=== PATIENT | male | born 2000 | race Caucasian/White ===

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

== ENCOUNTER 2021-10-30 02:56 | Emergency (ER) | payer SELFPAY ==
[2021-10-30 03:18] VITALS: BP 128/68; PULSE 81; RESP 20; TEMP 36.5; O2SAT 99; BMI 18.8
--- NOTE | 2021-10-30 03:28 | CTR_ITS ---
PROCEDURE INFORMATION: Exam: CT Abdomen And Pelvis Without Contrast Exam date and time: 10/30/2021 3:46 AM Age: 21 years old Clinical indication: Abdominal pain; Patient HX: Pain for six or seven weeks per PT; Additional info: Lower abdominal pain, vomiting. TECHNIQUE: Imaging protocol: Computed tomography of the abdomen and pelvis without contrast. Radiation optimization: All CT scans at this facility use at least one of these dose optimization techniques: automated exposure control; mA and/or kV adjustment per patient size (includes targeted exams where dose is matched to clinical indication); or iterative reconstruction. COMPARISON: CT abdomen pelvis con [id number] 09/11/2018 12:37 AM RADIATION DOSE METRICS: Total DLP (mGy-cm): 839.53 FINDINGS: Lungs: The lung bases are clear. Liver: Unremarkable. Gallbladder and bile ducts: No definite gallbladder abnormality by CT. Ultrasound would be more sensitive for detecting gallstones, if clinically needed. No biliary tree dilation. Pancreas: Unremarkable. Spleen: Unremarkable. Adrenal glands: Unremarkable. Kidneys and ureters: No hydronephrosis of either kidney. No visible renal or ureteral calculus. No perinephric fluid. Stomach and bowel: No significant bowel distention. There are no CT findings to strongly suggest diverticulitis or colitis. Appendix: The appendix is visualized and appears normal. Intraperitoneal space: No free intraperitoneal air, or ascites. Vasculature: No evidence for abdominal aortic aneurysm. Lymph nodes: No retroperitoneal adenopathy. Urinary bladder: Unremarkable as visualized. Reproductive: Essentially unremarkable for age. Bones/joints: No significant acute finding. Soft tissues: No significant acute finding. CT/CT abdomen pelvis [facility] [id number] IMPRESSION: 1. Normal appendix. 2. No free air or bowel distention. No evidence for bowel obstruction. 3. No hydronephrosis of either kidney. No visible renal or ureteral calculus. 4. Other details/findings discussed above.
[2021-10-30 03:49] LABS: Basophils # 0.1 10^3/uL (0.0-0.1); Basophils % 0.4 %; Eosinophils # 0.2 10^3/uL (0.0-0.8); Eosinophils % 1.5 %; Hematocrit 51.4 % (42.0-52.0); Hemoglobin 17.3 g/dL (11.7-16.6); Lymphocytes # 1.4 10^3/uL (0.8-4.8); Lymphocytes % 11.6 %; Mean Corpuscular HGB Conc 33.7 g/dL (30.0-36.0); Mean Corpuscular Volume 92.1 fl (80-94); Mean Platelet Volume 12.1 fL (7.4-10.4); Monocytes # 0.4 10^3/uL (0.2-0.9); Monocytes % 3.2 %; Neutrophils # 10.22 10^3/uL (1.8-7.7); Nucleated Red Blood Cells % 0 %; Platelet Count 195 10^3/cmm (130-400); Red Blood Count 5.58 10^6/uL (4.1-5.3); Red Cell Distribution Width 11.8 % (12.1-15.1); White Blood Count 12.3 10^3/uL (4.0-10.0)
[2021-10-30 04:00] VITALS: PULSE 73; RESP 16; O2SAT 99
[2021-10-30 04:05] LABS: Alanine Aminotransferase 19 U/L (0-41); Albumin Level 5.7 g/dL (3.5-5.2); Alkaline Phosphatase 90 IU/L (40-130); Aspartate Amino Transferase 25 U/L (0-40); Blood Urea Nitrogen 7 mg/dL (6-20); Calcium 10.1 mg/dL (8.5-10.5); Carbon Dioxide 26 mmol/L (22-29); Chloride 101 mmol/L (98-107); Globulin 2.5 g/dL (1.3-4.6); Glucose 106 mg/dL (65-115); Lipase 20 U/L (13-60); Osmolality Calculated 292 mOsm/kg (285-295); Sodium 142 mmol/L (136-145); Total Bilirubin 0.6 mg/dL (0.15-1.2); Total Protein 8.2 g/dL (6.6-8.7)
[2021-10-30 04:06] LABS: Anion Gap 19.1 (5-19); Potassium 4.1 mmol/L (3.5-5.1)
[2021-10-30 05:00] VITALS: BP 121/77; PULSE 84; RESP 16; O2SAT 99
--- NOTE | 2021-10-30 05:22 | ED_ITS ---
HPI - Nausea/Vomiting/Diarrhea General: Chief complaint: Nausea/Vomiting/Diarrhea Stated complaint: abd pain Time Seen by Provider: 10/30/21 03:20 Source: patient and family History of Present Illness: 21-year-old male who complains of vomiting on and off for several weeks. He became acutely worse this morning, developing significant belly pain. His dad brought him to the ER because he was worried about the belly pain. He complains also of intermittent diarrhea. No blood in the stool. No fever. No change in urination. No history of belly surgery. MD elicited complaint: nausea, vomiting, diarrhea and abdominal pain Pertinent past history: other Onset (ago): week(s) Description of vomiting: watery Description of diarrhea: watery Associated nausea: Yes Associated abdominal pain: Yes Location of pain: Diffuse Radiation: periumbilical Associated symtoms: Reports nausea; Denies chest pain Review of Systems Const: Denies: fever(s) ENMT: Denies: throat pain Card: Denies: chest pain or irregular heart rhythm Resp: Denies: dyspnea, productive cough or non-productive cough GI: Reports: abdominal pain, nausea, vomiting and diarrhea; Denies: hematemesis or hematochezia Musc: Denies: back pain Skin/Breast: Denies: rash PFSH ED PFSH: Medical History Abdominal pain Nausea and vomiting in adult Family History Other Hypertension Nausea and vomiting in adult Denies family history of Anesthesia complication Bleeding disorder Social History Smoking and tobacco status: former smoker Quit status (tobacco): has quit using tobacco Year quit tobacco: 2 or 3 months ago Second hand smoke exposure: No Alcohol intake: current Alcohol intake frequency: holidays/special occasions only Desire information about alcohol rehabilitation?: No Adopted: No Caregiver/support person: Yes Lives independently: Yes Household members: family Housing: House Marital status: Single Highest education level completed: High School Graduate service: No Current occupational status: employed Current occupational exposures/hazards: No Pets and animals: No History of recent travel: No Leisure activites: games, hunting and fishing Sexually active: Yes Current gender identity: Male Meg/Druze: Orthodoxy Special meg needs: No Agree to transfusion: No Financial difficulty paying for basics: Decline to Answer Physical Exam Const: GENERAL APPEARANCE: cooperative; not frail appearing NUTRITIONAL APPEARANCE: thin HENMT: COMMON NORMALS: normocephalic and atraumatic HEAD & SCALP: normocephalic and atraumatic FACE & SINUS: normal facial exam and face symmetric Eye: COMMON NORMALS: Equal, round and reactive pupils present and EOMs intact bilaterally PUPIL: Yes Equal, round and reactive pupils present Neck/C-Spine: GENERAL: Yes trachea midline Chest: CHEST: Yes Symmetrical chest wall rise Resp: COMMON NORMALS: normal respiratory effort, No use of accessory muscles and clear to auscultation bilaterally AUSCULTATION: clear to auscultation bilaterally Cardio: COMMON NORMALS: regular rate and regular rhythm RATE: regular rate RHYTHM: regular rhythm GI: COMMON NORMALS: Normal to inspection, nondistended, normoactive bowel sounds present PALPATION: Yes Tenderness to palpation present (GI) (Lower abdomen) Extremity: COMMON NORMALS: capillary refill normal Neuro: SKINNY COMA SCALE: document GCS findings [place] coma scale eye opening: Spontaneous Skinny coma scale verbal response: Orientated [place] coma scale motor response: Obey commands Skinny coma scale total score: 15 Course Vital Signs: Vital signs: Vital Signs Temperature 97.7 F 10/30/21 03:18 Pulse Rate 107 H 10/30/21 05:30 Respiratory Rate 18 10/30/21 05:30 Blood Pressure 121/77 10/30/21 05:00 Pulse Oximetry 99 10/30/21 05:30 MDM - Nausea/Vomiting/Diarrhea Medical Decision Making Vital signs are stable. The patient is afebrile. Blood work shows a leukocytos is of 12.3, and hemoconcentration. BMP is normal. Liver enzymes are normal. CT is pending. CT shows a normal appendix. No evidence of acute findings as a cause for her belly pain, vomiting, and diarrhea. The patient admits to marijuana use, and smells strongly of marijuana. Could be considered that cyclic vomiting syndrome related to cannabis could be a potential cause of recurrent vomiting in this patient. Lab Data : 10/30/21 03:45 10/30/21 03:45 Radiology Impressions Abdomen/Pelvis CT 10/30/21 03:28 IMPRESSION: 1. Normal appendix. 2. No free air or bowel distention. No evidence for bowel obstruction. 3. No hydronephrosis of either kidney. No visible renal or ureteral calculus. 4. Other details/findings discussed above. Laboratory Results WBC 12.3 10^3/uL (4.0-10.0) H 10/30/21 03:45 RBC 5.58 10^6/uL (4.1-5.3) H 10/30/21 03:45 Hgb 17.3 g/dL (11.7-16.6) H 10/30/21 03:45 Hct 51.4 % (42.0-52.0) 10/30/21 03:45 MCV 92.1 fl (80-94) 10/30/21 03:45 MCH 31.0 pg (28.0-34.0) 10/30/21 03:45 MCHC 33.7 g/dL (30.0-36.0) 10/30/21 03:45 RDW 11.8 % (12.1-15.1) L 10/30/21 03:45 Plt Count 195 10^3/cmm (130-400) 10/30/21 03:45 MPV 12.1 fL (7.4-10.4) H 10/30/21 03:45 Neut % (Auto) 83.0 % 10/30/21 03:45 Lymph % (Auto) 11.6 % 10/30/21 03:45 Nicholas % (Auto) 3.2 % 10/30/21 03:45 Eos % (Auto) 1.5 % 10/30/21 03:45 Baso % (Auto) 0.4 % 10/30/21 03:45 Neut # (Auto) 10.22 10^3/uL (1.8-7.7) H 10/30/21 03:45 Lymph # (Auto) 1.4 10^3/uL (0.8-4.8) 10/30/21 03:45 Nicholas # (Auto) 0.4 10^3/uL (0.2-0.9) 10/30/21 03:45 Eos # (Auto) 0.2 10^3/uL (0.0-0.8) 10/30/21 03:45 Baso # (Auto) 0.1 10^3/uL (0.0-0.1) 10/30/21 03:45 Nucleated RBC % (auto) 0 % 10/30/21 03:45 Nucleated RBCs # 0.0 /100WBC 10/30/21 03:45 Sodium 142 mmol/L (136-145) 10/30/21 03:45 Potassium 4.1 mmol/L (3.5-5.1) 10/30/21 03:45 Chloride 101 mmol/L (98-107) 10/30/21 03:45 Carbon Dioxide 26 mmol/L (22-29) 10/30/21 03:45 Anion Gap 19.1 (5-19) H 10/30/21 03:45 BUN 7 mg/dL (6-20) 10/30/21 03:45 Creatinine 0.8 mg/dL (0.7-1.2) 10/30/21 03:45 GFR Calculation 122.0 mL/min (90-130) 10/30/21 03:45 Glucose 106 mg/dL (65-115) 10/30/21 03:45 Calculated Osmolality 292 mOsm/kg (285-295) 10/30/21 03:45 Calcium 10.1 mg/dL (8.5-10.5) 10/30/21 03:45 Total Bilirubin 0.6 mg/dL (0.15-1.2) 10/30/21 03:45 AST 25 U/L (0-40) 10/30/21 03:45 ALT 19 U/L (0-41) 10/30/21 03:45 Alkaline Phosphatase 90 IU/L (40-130) 10/30/21 03:45 C-Reactive Protein 3.0 mg/L (0.0-4.9) 10/30/21 03:45 Total Protein 8.2 g/dL (6.6-8.7) 10/30/21 03:45 Albumin 5.7 g/dL (3.5-5.2) H 10/30/21 03:45 Globulin 2.5 g/dL (1.3-4.6) 10/30/21 03:45 Lipase 20 U/L (13-60) 10/30/21 03:45 Discharge Plan Discharge Patient Disposition: Home Clinical Impression: Abdominal pain, Cyclical vomiting syndrome Condition: Stable Prescriptions: New ondansetron 4 mg film 4 mg PO DAILY PRN (Reason: nausea and vomiting) Qty: 10 0RF No Action pantoprazole [Protonix] 40 mg tablet,delayed release (DR/EC) 40 mg PO ONCE Qty: 30 0RF diphenhydramine HCl [Benadryl] 25 mg Capsule 25 mg PO TID PRN (Reason: allergies) 0RF lisinopril 10 mg tablet 10 mg PO DAILY 0RF montelukast 10 mg tablet 10 mg PO DAILY 0RF sildenafil (pulm.hypertension) 20 mg tablet 20 mg PO DAILY 0RF Discharge Orders: Discharge ED (Routine); Ordered 10/30/21 Ordered By: Abdirizak Young Patient Instructions: Abdominal Pain (ED), Cyclic Vomiting Syndrome (ED) Activity Restrictions/Additional Instructions: Return for fever greater than 100, worsening vomiting despite treatment, blood in the stool or vomitus, any other concerning symptoms. As the use of cannabis can worsen vomiting acutely, it is suggested that you do not use marijuana for the time being. 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
[2021-10-30 05:30] VITALS: PULSE 107; RESP 18; O2SAT 99
[2021-10-30] MEDS: ketorolac 30 mg/mL INJ 15 MG IVP (05:35)
[2021-10-30] MEDS: sodium chloride 0.9% 1,000 ML 999 ML IV (05:35)
[2021-10-30] MEDS: ondansetron 2 mg/ML SDV 2 mL 4 MG IVP (05:35)
[2021-10-30 06:04] LABS: Add Urine Microscopic? NO; Charge for UA Resulting for Rev
[2021-10-30 06:11] LABS: Urine Appearance Clear (CLEAR); Urine Color Yellow (Yellow); pH Urine 9 (5-7)
[2021-10-30 06:12] LABS: Bilirubin Urine Neg (Negative); Blood Urine Neg (Negative); Glucose Urine UA Norm (Normal); Ketones Urine 1+ (Negative); Leukocyte Esterase Urine Negative (Negative); Nitrate Urine Negative (Negative); Protein Urine Neg (Negative); Specific Gravity, Urine 1.015 (1.005-1.030); Sulfosalicylic Acid Urine Negative (Negative); Urobilinogen Urine Norm (Negative)
[2021-10-30 06:16] VITALS: BP 114/95; PULSE 107; RESP 18; O2SAT 99
== END 2021-10-30 06:20 | disposition home or self-care (01) ==
PROVIDERS: Emergency Provider Emergency Medicine
DX: R10.9 Unspecified abdominal pain (principal); R11.15 Cyclical vomiting syndrome unrelated to migraine
CPT/HCPCS: 74176; 80053; 81003; 83690; 85025; 86140; 96361; 96374; 96375; 99285; J1885; J2405; J7030

== ENCOUNTER 2022-01-12 11:33 | Emergency (ER) | payer SELFPAY ==
[2022-01-12 11:59] VITALS: BMI 20.3
[2022-01-12 13:41] LABS: Basophils # 0.1 10^3/uL (0.0-0.1); Basophils % 0.5 %; Eosinophils # 0.1 10^3/uL (0.0-0.8); Eosinophils % 0.8 %; Hematocrit 49.9 % (42.0-52.0); Hemoglobin 16.1 g/dL (11.7-16.6); Lymphocytes # 0.8 10^3/uL (0.8-4.8); Lymphocytes % 7.8 %; Mean Corpuscular HGB Conc 32.3 g/dL (30.0-36.0); Mean Corpuscular Hemoglobin 31.3 pg (28.0-34.0); Mean Corpuscular Volume 97.1 fl (80-94); Mean Platelet Volume 11.9 fL (7.4-10.4); Monocytes # 0.3 10^3/uL (0.2-0.9); Monocytes % 3.3 %; Neutrophils # 8.72 10^3/uL (1.8-7.7); Neutrophils % 87.2 %; Nucleated Red Blood Cells % 0 %; Platelet Count 155 10^3/cmm (130-400); Red Blood Count 5.14 10^6/uL (4.1-5.3); Red Cell Distribution Width 11.9 % (12.1-15.1)
[2022-01-12 14:00] LABS: Alanine Aminotransferase 18 U/L (0-41); Albumin Level 5.3 g/dL (3.5-5.2); Alkaline Phosphatase 82 U/L (40-130); Anion Gap 19.7 (5-19); Aspartate Amino Transferase 20 U/L (0-40); Blood Urea Nitrogen 9 mg/dL (6-20); Calcium 10.7 mg/dL (8.5-10.5); Carbon Dioxide 22 mmol/L (22-29); Chloride 101 mmol/L (98-107); Globulin 2.7 g/dL (1.3-4.6); Glomerular Filtration Rate 106.5 mL/min (90-130); Glucose 150 mg/dL (65-115); Osmolality Calculated 288 mOsm/kg (285-295); Potassium 4.7 mmol/L (3.5-5.1); Sodium 138 mmol/L (136-145)
[2022-01-12] MEDS: ondansetron 2 mg/ML SDV 2 mL 4 MG IVP (14:23)
[2022-01-12] MEDS: lactated ringers 1,000 ML 999 ML IV ×2 (14:24→15:13)
[2022-01-12 14:25] VITALS: BP 122/81; PULSE 58; RESP 16; O2SAT 98
[2022-01-12 14:59] VITALS: BP 122/63; PULSE 56; RESP 15; O2SAT 100
--- NOTE | 2022-01-12 15:10 | ED_ITS ---
HPI - Abdominal Pain General: Chief Complaint: Abdominal Pain Stated Complaint: N/V Time Seen by Provider: 01/12/22 14:08 Source: patient and family Mode of arrival: ambulatory History of Present Illness: This patient was brought to the emergency department by his family today because he had repetitive vomiting today. He is also has some associated complaint of abdominal pain. He denies any fevers or chills or known exposure to anyone who is ill. He apparently had a prior episode that was related to marijuana use and thought to be hyperemesis. He adamantly denies at this time he smoking marijuana but does admit to vaping. He denies any known exposure to infectious disease outside the home. Never had any abdominal surgeries. No blood in his stools or no bloody emesis. He does not drink alcohol. He does have seasonal allergies and also gets a lot of congestion and coughs in the morning and sometimes he has emesis with those coughing spells but usually that is only isolated emesis. MD elicited complaint: abdominal pain Pain Consistency: intermittent Quality: cramping Associated Symptoms: Reports vomiting; Denies chills, diarrhea, dysuria, fever(s), hematemesis, loose stools and melena Review of Systems Const: Denies: fever(s), chills or body aches Eyes: Denies: change in vision ENMT: Reports: nasal discharge and nasal congestion; Denies: throat pain, odynophagia or hoarseness Card: Denies: chest pain, palpitations or irregular heart rhythm Resp: Reports: non-productive cough; Denies: dyspnea, wheezing or stridor GI: Reports: abdominal pain and vomiting; Denies: hematemesis, diarrhea or melena : Denies: flank pain, difficulty urinating or dysuria Musc: Denies: neck pain, back pain, extremity pain or extremity swelling Skin/Breast: Denies: rash Neuro: Denies: headache(s) or numbness in extremities PFSH ED PFSH: Medical History Abdominal pain Nausea and vomiting in adult Family History Other Hypertension Nausea and vomiting in adult Denies family history of Anesthesia complication Bleeding disorder Social History Smoking and tobacco status: former smoker Quit status (tobacco): has quit using tobacco Year quit tobacco: 2 or 3 months ago Second hand smoke exposure: No Alcohol intake: current Alcohol intake frequency: holidays/special occasions only Desire information about alcohol rehabilitation?: No Adopted: No Caregiver/support person: Yes Lives independently: Yes Household members: family Housing: House Marital status: Single Highest education level completed: High School Graduate service: No Current occupational status: employed Current occupational exposures/hazards: No Pets and animals: No History of recent travel: No Leisure activites: games, hunting and fishing Sexually active: Yes Current gender identity: Male Meg/Nondenominational: Mandaen Special meg needs: No Agree to transfusion: No Financial difficulty paying for basics: Decline to Answer Physical Exam Narrative: EXAM NARRATIVE: Patient is generally cooperative during the evaluation. He does ask for pain medicine and a drink while I am examining him. Const: COMMON NORMALS: average body habitus, patient oriented x3 and alert HENMT: COMMON NORMALS: normocephalic, Normal nasal mucous membranes and turbinates present, moist oral mucous membranes and oropharynx normal HEAD & SCALP: normocephalic NOSE: Normal nasal mucous membranes and turbinates present Eye: COMMON NORMALS: Equal, round and reactive pupils present, EOMs intact bilaterally, conjunctivae normal and no scleral icterus CONJUNCTIVA: Yes conjunctivae normal PUPIL: Yes Equal, round and reactive pupils present Neck/C-Spine: COMMON NORMALS: full ROM, no lymphadenopathy and supple Chest: COMMONS NORMALS: normal inspection of the chest and normal palpation of entire chest wall Resp: COMMON NORMALS: normal respiratory effort, No use of accessory muscles and clear to auscultation bilaterally AUSCULTATION: clear to auscultation bilaterally Cardio: COMMON NORMALS: regular rate, regular rhythm, No murmurs present (Cardio) and Peripheral pulses 2+ throughout RATE: regular rate RHYTHM: regular rhythm PERIPHERAL PULSES: Peripheral pulses 2+ throughout GI: COMMON NORMALS: Normal to inspection, nondistended, normoactive bowel sounds present OTHER: His abdominal examination is generally soft however he has voluntary guarding throughout which is diffuse. No peritoneal signs or rebound. No masses. No skin rashes. No ecchymosis. : COMMON NORMALS: Yes no CVA tenderness BLADDER/KIDNEY EXAM: Yes no CVA tenderness Back/Pelvis: COMMON NORMALS: no CVA tenderness, thoracic and lumbar spine normal to inspection, no thoracic nor lumbar tenderness and thoraco-lumbar ROM normal Extremity: COMMON NORMALS: normal to inspection, capillary refill normal, no calf tenderness and no pedal edema Neuro: COMMON NORMALS: patient oriented x3, moves all extremities, no focal motor deficits and no sensory deficits noted SENSORIUM/ORIENTATION: Yes alert SPEECH: speech normal Psych: COMMON NORMALS: mental status grossly normal Skin: COMMON NORMALS: no rashes or lesions noted, no wounds, turgor normal and no jaundice GENERAL SKIN EXAM: no rashes or lesions noted and turgor normal Course Reevaluation(s): Reevaluation #1: Patient has been well controlled without any emesis since arrival to the emergency department and after initiation of treatment. His urine drug screen is revealing in that it is in direct distinction to his denial of any marijuana use for several weeks. His clinical examination his laboratories do not support any surgical or other worrisome condition at this time. I strongly encouraged him to avoid his marijuana use or least markedly to decrease use as he is clearly suffering based upon our current evaluation from hyperemesis syndrome. Time: 17:42 Vital Signs: Vital signs: Vital Signs Pulse Rate 66 01/12/22 15:19 Respiratory Rate 17 01/12/22 15:19 Blood Pressure 130/85 01/12/22 15:19 Pulse Oximetry 99 01/12/22 15:19 Oxygen Delivery Me thod 01/12/22 15:19 MDM - Abdominal Pain Medical Decision Making Healthy 21-year-old with a history of high level of marijuana use returns to the emergency department again with episode of repetitive retching and emesis. Clinical examination does not suggest surgical abdomen and ancillary studies do not reveal anything that would suggest a worrisome condition at this time. However urine drug screen does reveal that he has continued to use marijuana certainly within the last number of weeks. He is currently clinically stable to be discharged home and that is in consort with his current wishes. Medical Records I reviewed the patient's medical records. Lab Data I reviewed the patient's lab results. : 01/12/22 13:32 01/12/22 13:32 Labs/Radiology: Laboratory Results WBC 10.0 10^3/uL (4.0-10.0) 01/12/22 13:32 RBC 5.14 10^6/uL (4.1-5.3) 01/12/22 13:32 Hgb 16.1 g/dL (11.7-16.6) 01/12/22 13:32 Hct 49.9 % (42.0-52.0) 01/12/22 13:32 MCV 97.1 fl (80-94) H 01/12/22 13:32 MCH 31.3 pg (28.0-34.0) 01/12/22 13:32 MCHC 32.3 g/dL (30.0-36.0) 01/12/22 13:32 RDW 11.9 % (12.1-15.1) L 01/12/22 13:32 Plt Count 155 10^3/cmm (130-400) 01/12/22 13:32 MPV 11.9 fL (7.4-10.4) H 01/12/22 13:32 Neut % (Auto) 87.2 % 01/12/22 13:32 Lymph % (Auto) 7.8 % 01/12/22 13:32 Bertie % (Auto) 3.3 % 01/12/22 13:32 Eos % (Auto) 0.8 % 01/12/22 13:32 Baso % (Auto) 0.5 % 01/12/22 13:32 Neut # (Auto) 8.72 10^3/uL (1.8-7.7) H 01/12/22 13:32 Lymph # (Auto) 0.8 10^3/uL (0.8-4.8) 01/12/22 13:32 Bertie # (Auto) 0.3 10^3/uL (0.2-0.9) 01/12/22 13:32 Eos # (Auto) 0.1 10^3/uL (0.0-0.8) 01/12/22 13:32 Baso # (Auto) 0.1 10^3/uL (0.0-0.1) 01/12/22 13:32 Nucleated RBC % (auto) 0 % 01/12/22 13:32 Nucleated RBCs # 0.0 /100WBC 01/12/22 13:32 Sodium 138 mmol/L (136-145) 01/12/22 13:32 Potassium 4.7 mmol/L (3.5-5.1) 01/12/22 13:32 Chloride 101 mmol/L (98-107) 01/12/22 13:32 Carbon Dioxide 22 mmol/L (22-29) 01/12/22 13:32 Anion Gap 19.7 (5-19) H 01/12/22 13:32 BUN 9 mg/dL (6-20) 01/12/22 13:32 Creatinine 0.9 mg/dL (0.7-1.2) 01/12/22 13:32 GFR Calculation 106.5 mL/min (90-130) 01/12/22 13:32 Glucose 150 mg/dL (65-115) H 01/12/22 13:32 Calculated Osmolality 288 mOsm/kg (285-295) 01/12/22 13:32 Calcium 10.7 mg/dL (8.5-10.5) H 01/12/22 13:32 Total Bilirubin 1.0 mg/dL (0.15-1.2) 01/12/22 13:32 AST 20 U/L (0-40) 01/12/22 13:32 ALT 18 U/L (0-41) 01/12/22 13:32 Alkaline Phosphatase 82 U/L (40-130) 01/12/22 13:32 Total Protein 8.0 g/dL (6.6-8.7) 01/12/22 13:32 Albumin 5.3 g/dL (3.5-5.2) H 01/12/22 13:32 Globulin 2.7 g/dL (1.3-4.6) 01/12/22 13:32 Urine Color Straw (Yellow) 01/12/22 16:45 Urine Appearance Clear (CLEAR) 01/12/22 16:45 Urine pH 8 (5-7) H 01/12/22 16:45 Ur Specific [place] 1.010 (1.005-1.030) 01/12/22 16:45 Urine Protein Neg (Negative) 01/12/22 16:45 Urine Glucose (UA) Norm (Normal) 01/12/22 16:45 Urine Ketones 1+ (Negative) H 01/12/22 16:45 Urine Blood Neg (Negative) 01/12/22 16:45 Urine Nitrate Negative (Negative) 01/12/22 16:45 Urine Bilirubin Neg (Negative) 01/12/22 16:45 Prot Sulfosalicylic Acd Negative (Negative) 01/12/22 16:45 Urine Urobilinogen Norm mg/dL (Negative) 01/12/22 16:45 Ur Leukocyte Esterase Negative (Negative) 01/12/22 16:45 Urine Opiates Screen Negative ng/mL (Negative) 01/12/22 16:45 Ur Barbiturates Screen Negative ng/mL (Negative) 01/12/22 16:45 Ur Phencyclidine Scrn Negative ng/mL (Negative) 01/12/22 16:45 Ur Amphetamines Screen Negative ng/mL (Negative) 01/12/22 16:45 U Benzodiazepines Scrn Negative ng/mL (Negative) 01/12/22 16:45 Urine Cocaine Screen Negative ng/mL (Negative) 01/12/22 16:45 U Marijuana (THC) Screen Positive ng/mL (Negative) H 01/12/22 16:45 Discharge Plan Discharge Patient Disposition: Home Clinical Impression: Cannabinoid hyperemesis syndrome Condition: Stable Prescriptions: No Action diphenhydramine HCl [Benadryl] 25 mg Capsule 25 mg PO BEDTIME PRN (Reason: allergies) montelukast 10 mg tablet 10 mg PO QAM ondansetron 4 mg tablet,disintegrating 4 mg PO DAILY PRN (Reason: Nausea And Vomiting) Discharge Orders: Discharge ED (Routine); Ordered 01/12/22 Ordered By: Wei Curtis Discharge Diet: Usual diet Discharge Activity: Resume usual activity Patient Instructions: Opioid Safety, Pain Management Activity Restrictions/Additional Instructions: Do not use or smoke marijuana. This will cause recurrent symptoms of vomiting in your case. If you develop any new persistent or worsening symptoms you are welcome to return to this emergency department at any time. Coding Level of Care Code ED Biomedical Engineering Professor for Casey Fweric Exam Comprehensive
[2022-01-12] MEDS: haloperidol inj 5 mg/mL INJ 1 mL IVP (15:14)
[2022-01-12 15:19] VITALS: BP 130/85; PULSE 66; RESP 17; O2SAT 99
--- NOTE | 2022-01-12 15:30 | PC.PHAR ---
pt and pts family verified pts medications-pt states he takes montelukast 10mg q[facility] and this medication hasnt been filled [facility] states they havent filled medication for the pt-pt states he is no longer taking lisinopril 10mg daily sildenafil 20mg daily and protonix 40mg those medications were on previous entered med list ext med history doesnt show when last filled pt states no taken for years
--- NOTE | 2022-01-12 15:38 | PC.NURSE ---
Patient continues to c/o abdominal pain, was rocking on the bed and yelling it hurts, patient given zofran and haldol per orders. At this time patient is seen resting with eyes closed, no distress noted.
--- NOTE | 2022-01-12 16:29 | PC.NURSE ---
Patient appears to be sleeping at this time, no distress noted
[2022-01-12 16:59] LABS: Add Urine Microscopic? NO; Charge for UA Resulting for Rev
[2022-01-12] MEDS: ketorolac 30 mg/mL INJ 15 MG IVP (17:10)
[2022-01-12 17:11] LABS: Bilirubin Urine Neg (Negative); Blood Urine Neg (Negative); Glucose Urine UA Norm (Normal); Ketones Urine 1+ (Negative); Leukocyte Esterase Urine Negative (Negative); Nitrate Urine Negative (Negative); Protein Urine Neg (Negative); Sulfosalicylic Acid Urine Negative (Negative); Urine Appearance Clear (CLEAR); Urine Color Straw (Yellow); Urobilinogen Urine Norm (Negative); pH Urine 8 (5-7)
[2022-01-12 17:21] LABS: Amphetamines Screen Urine Negative (Negative); Barbiturates Screen Urine Negative (Negative); Benzodiazepines Screen Urine Negative (Negative); Cocaine Screen Urine Negative (Negative); Opiate Screen Urine Negative (Negative); PCP Screen Urine Negative (Negative); THC Screen Urine Positive (Negative)
[2022-01-12 18:17] VITALS: BP 113/63; PULSE 81; RESP 15; TEMP 36.5; O2SAT 97
== END 2022-01-12 18:19 | disposition home or self-care (01) ==
PROVIDERS: Family Medicine; Emergency Provider Emergency Medicine
DX: R11.10 Vomiting, unspecified (principal); F12.920 Cannabis use, unspecified with intoxication, uncomplicated; Z87.891 Personal history of nicotine dependence
CPT/HCPCS: 80053; 80306; 81003; 85025; 96361; 96374; 96375; 99284; J1630; J1885; J2405

== ENCOUNTER 2022-07-05 09:18 | Emergency (ER) | payer MEDICAID, SELFPAY ==
[2022-07-05 09:23] VITALS: BMI 18.4
--- NOTE | 2022-07-05 09:40 | ED_ITS ---
HPI - Abdominal Pain General: Chief Complaint: Nausea/Vomiting/Diarrhea Stated Complaint: n/v Time Seen by Provider: 07/05/22 09:18 History of Present Illness: Patient is a 22-year-old male comes to the ED with abdominal pain. Symptoms started yesterday morning. He reports having ab dominal pain that is located in the periumbilical region of his abdomen. He rates his pain currently a 5 out of 10. Patient also reports nausea and vomiting and has had multiple episodes of emesis since onset of symptoms. He says he has not been able to keep any food or fluids down. Patient reports being a past marijuana user, but states he stopped using marijuana approximately 3 weeks ago. Denies any past abdominal surgical history. He endorses having nausea and vomiting episodes like this before but denies any past abdominal pain episodes like this. Denies any fevers, bladder or bowel symptoms. Associated Symptoms: Reports nausea and vomiting; Denies chills, constipation, diarrhea, dysuria, fever(s), hematochezia and hematuria Review of Systems Const: Denies: fever(s), chills or fatigue Eyes: Denies: change in vision or eye discomfort ENMT: Denies: throat pain, odynophagia, nasal discharge or nasal congestion Card: Denies: chest pain, palpitations, edema, swelling of feet/ankles, dyspnea on exertion or orthopnea Resp: Denies: dyspnea, productive cough or non-productive cough GI: Reports: abdominal pain, nausea and vomiting; Denies: diarrhea, constipation or hematochezia : Denies: flank pain, difficulty urinating, dysuria or hematuria Musc: Denies: neck pain, back pain or extremity swelling Skin/Breast: Denies: rash or new lesions Neuro: Denies: headache(s), numbness in extremities or weakness in extremities PFSH ED PFSH: Medical History (Updated 07/05/22 @ 11:29 by KATERINA Amaya) Abdominal pain Nausea and vomiting in adult Surgical History (Updated 07/05/22 @ 09:45 by KATERINA Amaya) No pertinent past surgical history Family History Other Hypertension Nausea and vomiting in adult Denies family history of Anesthesia complication Bleeding disorder Social History Smoking and tobacco status: former smoker Quit status (tobacco): has quit using tobacco Year quit tobacco: 2 or 3 months ago Second hand smoke exposure: No Alcohol intake: current Alcohol intake frequency: holidays/special occasions only Desire information about alcohol rehabilitation?: No Adopted: No Caregiver/support person: Yes Lives independently: Yes Household members: family Housing: House Marital status: Single Highest education level completed: High School Graduate service: No Current occupational status: employed Current occupational exposures/hazards: No Pets and animals: No Leisure activites: games, hunting and fishing Sexually active: Yes Current gender identity: Male Meg/[employer]: [employer] Special meg needs: No Agree to transfusion: No Financial difficulty paying for basics: Decline to Answer Physical Exam Const: COMMON NORMALS: patient oriented x3 and alert GENERAL APPEARANCE: cooperative HENMT: COMMON NORMALS: normocephalic HEAD & SCALP: normocephalic MOUTH: Normal oral and palatal mucosa present THROAT: posterior oropharynx normal and uvula midline Neck/C-Spine: COMMON NORMALS: supple GENERAL: Yes normal visual inspection Resp: COMMON NORMALS: normal respiratory effort, No retractions, No use of accessory muscles and clear to auscultation bilaterally AUSCULTATION: clear to auscultation bilaterally Cardio: COMMON NORMALS: regular rate, regular rhythm, S1 normal heart sound present, S2 normal heart sound present, No gallops present (Cardio), No clicks present (Cardio), No murmurs present (Cardio) and Peripheral pulses 2+ throughout RATE: regular rate RHYTHM: regular rhythm HEART SOUNDS: S1 normal heart sound present and S2 normal heart sound present PERIPHERAL PULSES: Peripheral pulses 2+ throughout GI: COMMON NORMALS: Normal to inspection, nondistended, normoactive bowel sounds present, Soft to palpation and no masses PALPATION: Yes Soft to palpation and Yes Tenderness to palpation present (GI) (Periumbilical abdominal tenderness.) : COMMON NORMALS: Yes no CVA tenderness BLADDER/KIDNEY EXAM: Yes no CVA tenderness Back/Pelvis: COMMON NORMALS: no CVA tenderness Extremity: COMMON NORMALS: normal to inspection Neuro: COMMON NORMALS: patient oriented x3 SENSORIUM/ORIENTATION: Yes alert GAIT: Yes Normal gait present Skin: GENERAL SKIN EXAM: dry skin Course Vital Signs: Vital signs: Vital Signs Temperature 97.8 F 07/05/22 09:57 Pulse Rate 75 07/05/22 11:38 Respiratory Rate 18 07/05/22 11:38 Blood Pressure 111/76 07/05/22 11:38 Pulse Oximetry 94 07/05/22 11:38 MDM - Abdominal Pain Medical Decision Making Patient is a 22-year-old male comes to the ED with abdominal pain. Symptoms started yesterday morning. He reports having abdominal pain that is located in the periumbilical region of his abdomen. He rates his pain currently a 5 out of 10. Patient also reports nausea and vomiting and has had multiple episodes of emesis since onset of symptoms. He says he has not been able to keep any food or fluids down. Patient reports being a past marijuana user, but states he stopped using marijuana approximately 3 weeks ago. Denies any past abdominal surgical history. He endorses having nausea and vomiting episodes like this before but denies any past abdominal pain episodes like this. Denies any fevers, bladder or bowel symptoms. Vitals are stable. Patient appears nontoxic in no acute distress. Mild periumbilical tenderness. Rest of exam is benign. Labs are unremarkable. CT of abdomen pelvis shows no acute findings but notes some signs of gastroenteritis. Patient was given a liter of IV fluids, morphine, Reglan and his symptoms improved. Patient was diagnosed gastroenterit is and discharged home with a prescription for dicyclomine and Reglan. Return to ED precautions given. Follow-up with PCP in the next week for reevaluation. Patient understood and agreed with plan. Lab Data I reviewed the patient's lab results. 07/05/22 09:50 07/05/22 09:50 Labs/Radiology: Radiology Impressions Abdomen/Pelvis CT 07/05/22 10:09 IMPRESSION: 1. Sensitivity and specificity is limited without IV and oral contrast and due to body habitus. 2. Only a portion of the appendix is visualized but is normal. 3. No renal obstruction. 4. Mild increased gas throughout the colon may represent gastroenteritis. There is no ascites. Laboratory Results WBC 9.4 10^3/uL (4.0-10.0) 07/05/22 09:50 RBC 5.06 10^6/uL (4.1-5.3) 07/05/22 09:50 Hgb 15.4 g/dL (11.7-16.6) 07/05/22 09:50 Hct 45.6 % (42.0-52.0) 07/05/22 09:50 MCV 90.1 fl (80-94) 07/05/22 09:50 MCH 30.4 pg (28.0-34.0) 07/05/22 09:50 MCHC 33.8 g/dL (30.0-36.0) 07/05/22 09:50 RDW 12.1 % (12.1-15.1) 07/05/22 09:50 Plt Count 194 10^3/cmm (130-400) 07/05/22 09:50 MPV 12.1 fL (7.4-10.4) H 07/05/22 09:50 Neut % (Auto) 75.0 % 07/05/22 09:50 Lymph % (Auto) 16.2 % 07/05/22 09:50 [place] % (Auto) 7.5 % 07/05/22 09:50 Eos % (Auto) 0.7 % 07/05/22 09:50 Baso % (Auto) 0.3 % 07/05/22 09:50 Neut # (Auto) 7.02 10^3/uL (1.8-7.7) 07/05/22 09:50 Lymph # (Auto) 1.5 10^3/uL (0.8-4.8) 07/05/22 09:50 [place] # (Auto) 0.7 10^3/uL (0.2-0.9) 07/05/22 09:50 Eos # (Auto) 0.1 10^3/uL (0.0-0.8) 07/05/22 09:50 Baso # (Auto) 0.0 10^3/uL (0.0-0.1) 07/05/22 09:50 Nucleated RBC % (auto) 0 % 07/05/22 09:50 Nucleated RBCs # 0.0 /100WBC 07/05/22 09:50 Sodium 136 mmol/L (136-145) 07/05/22 09:50 Potassium 4.0 mmol/L (3.5-5.1) 07/05/22 09:50 Chloride 97 mmol/L (98-107) L 07/05/22 09:50 Carbon Dioxide 25 mmol/L (22-29) 07/05/22 09:50 Anion Gap 18.0 (5-19) 07/05/22 09:50 BUN 12 mg/dL (6-20) 07/05/22 09:50 Creatinine 0.9 mg/dL (0.7-1.2) 07/05/22 09:50 GFR Calculation 105.5 mL/min (90-130) 07/05/22 09:50 Glucose 99 mg/dL (65-115) 07/05/22 09:50 Calculated Osmolality 282 mOsm/kg (285-295) L 07/05/22 09:50 Calcium 10.3 mg/dL (8.5-10.5) 07/05/22 09:50 Total Bilirubin 1.4 mg/dL (0.15-1.2) H 07/05/22 09:50 AST 21 U/L (0-40) 07/05/22 09:50 ALT 19 U/L (0-41) 07/05/22 09:50 Alkaline Phosphatase 72 U/L (40-130) 07/05/22 09:50 Total Protein 7.8 g/dL (6.6-8.7) 07/05/22 09:50 Albumin 5.0 g/dL (3.5-5.2) 07/05/22 09:50 Globulin 2.8 g/dL (1.3-4.6) 07/05/22 09:50 Lipase 15 U/L (13-60) 07/05/22 09:50 Discharge Plan Discharge Patient Disposition: Home Clinical Impression: Gastroenteritis Condition: Stable Prescriptions: New Reglan 10 mg tablet 10 mg PO Q6H PRN (Reason: nausea and vomiting) Qty: 20 0RF dicyclomine 20 mg tablet 20 mg PO QID PRN (Reason: Abdominal cramping and pain) Qty: 20 0RF No Action diphenhydramine HCl [Benadryl] 25 mg Capsule 25 mg PO BEDTIME PRN (Reason: allergies) montelukast 10 mg tablet 10 mg PO QAM ondansetron 4 mg tablet,disintegrating 4 mg PO DAILY PRN (Reason: Nausea And Vomiting) Discharge Orders: Discharge ED (Routine); Ordered 07/05/22 Ordered By: Devin Valentino Discharge Diet: Advance as tolerated and Clear Liquid Discharge Activity: Increase activity as tolerated Patient Instructions: Gastroenteritis (DC) Activity Restrictions/Additional Instructions: Follow-up with medical provider as directed in the next 5 to 7 days for reevaluation. Take medications as prescribed. Make sure you are drinking plenty of fluids and staying hydrated return to the ER or your medical provider if condition worsens. Please read and understand discharge instructions. Thank you for choosing [facility] for your healthcare needs today. Please realize this is an emergency room and that we are providing you with a medical screening exam and this may not be complete and all inclusive of all the testing and or work up that you may need to determine your ailment or severity of your illness. It is very important that you follow up as instructed or that you return to the Emergency Department should you have concerns or if your condition changes or worsens in any way. Coding Level of Care Code ED Inventory Administrator for Casey Del Toro
[2022-07-05] MEDS: metoclopramide 5 mg/mL SDV 2 mL 10 MG IVP (09:49)
[2022-07-05] MEDS: sodium chloride 0.9% 1,000 ML 999 ML IV (09:55)
[2022-07-05 09:57] VITALS: TEMP 36.6
[2022-07-05 10:05] LABS: Basophils % 0.3 %; Eosinophils # 0.1 10^3/uL (0.0-0.8); Eosinophils % 0.7 %; Hematocrit 45.6 % (42.0-52.0); Hemoglobin 15.4 g/dL (11.7-16.6); Lymphocytes # 1.5 10^3/uL (0.8-4.8); Lymphocytes % 16.2 %; Mean Corpuscular HGB Conc 33.8 g/dL (30.0-36.0); Mean Corpuscular Hemoglobin 30.4 pg (28.0-34.0); Mean Corpuscular Volume 90.1 fl (80-94); Mean Platelet Volume 12.1 fL (7.4-10.4); Monocytes # 0.7 10^3/uL (0.2-0.9); Monocytes % 7.5 %; Neutrophils # 7.02 10^3/uL (1.8-7.7); Nucleated Red Blood Cells % 0 %; Platelet Count 194 10^3/cmm (130-400); Red Blood Count 5.06 10^6/uL (4.1-5.3); Red Cell Distribution Width 12.1 % (12.1-15.1); White Blood Count 9.4 10^3/uL (4.0-10.0)
--- NOTE | 2022-07-05 10:09 | CT_ITS ---
WS: [id number] CT ABDOMEN AND PELVIS NONCONTRAST HISTORY: Periumbilical abdominal pain, nausea and vomiting. TECHNIQUE: Imaging performed through the abdomen and pelvis. Coronal and sagittal reformats are submi tted. All CT scans at [place] use at least one of these dose optimization techniques: auto mated exposure control; mA and/or kV adjustment per patient size (includes targeted exams where dose is matched to clinical indication); or iterative reconstruction. DLP: 333.93 mGy.cm COMPARISON: 10/30/2021 Lower thorax: Lung bases are clear. Visualized heart is normal. No hiatal hernia. Liver: Normal size liver. No mass or bile duct dilatation. Gallbladder: Normal gallbladder. Pancreas: Normal size and attenuation. Normal pancreatic duct. No pancreatitis or mass. Spleen: Normal. Adrenal glands: Poorly visualized. Right kidney: Normal size kidney with no mass or hydronephrosis. Left kidney: Normal size kidney with no mass or hydronephrosis. Aorta: Normal abdominal aorta, no aneurysm or atherosclerosis. No free fluid, intraperitoneal air or significant lymphadenopathy. GI tract: Stomach is not distended. No small bowel obstruction. The appendix is only partially visual ized. The portion of the appendix identified is normal and contains air. There is an appendicolith de veloping within the appendix. Mild increased amount of air throughout the colon. Abdominal wall: Negative. No hernia. Pelvis: Normal. Osseous structures: Bilateral sclerotic foci in the femoral heads. CT/CT abdomen pelvis wo con [id number] IMPRESSION: 1. Sensitivity and specificity is limited without IV and oral contrast and due to body habitus. 2. Only a portion of the appendix is visualized but is normal. 3. No renal obstruction. 4. Mild increased gas throughout the colon may represent gastroenteritis. Ther e is no ascites.
[2022-07-05 10:12] VITALS: RESP 20
[2022-07-05] MEDS: morphine 4 mg/mL SDV 1 mL IVP (10:12)
[2022-07-05 10:35] LABS: Alanine Aminotransferase 19 U/L (0-41); Alkaline Phosphatase 72 U/L (40-130); Aspartate Amino Transferase 21 U/L (0-40); Blood Urea Nitrogen 12 mg/dL (6-20); Calcium 10.3 mg/dL (8.5-10.5); Carbon Dioxide 25 mmol/L (22-29); Chloride 97 mmol/L (98-107); Globulin 2.8 g/dL (1.3-4.6); Glomerular Filtration Rate 105.5 mL/min (90-130); Glucose 99 mg/dL (65-115); Lipase 15 U/L (13-60); Osmolality Calculated 282 mOsm/kg (285-295); Sodium 136 mmol/L (136-145); Total Bilirubin 1.4 mg/dL (0.15-1.2); Total Protein 7.8 g/dL (6.6-8.7)
[2022-07-05 11:38] VITALS: BP 111/76; PULSE 75; RESP 18; O2SAT 94
--- NOTE | 2022-07-06 13:26 | DCPLANNER ---
manager internet retails sales called patient due to no primary care physician - phone number has been disconnected
== END 2022-07-05 11:40 | disposition home or self-care (01) ==
PROVIDERS: Emergency Provider Physician Assistant
DX: K52.9 Noninfective gastroenteritis and colitis, unspecified (principal); Z87.891 Personal history of nicotine dependence
CPT/HCPCS: 74176; 80053; 83690; 85025; 96361; 96374; 96375; 99285; J2270; J2765; J7030

== ENCOUNTER 2022-08-07 06:39 | Emergency (ER) | payer MEDICAID, SELFPAY ==
[2022-08-07 07:04] VITALS: BP 131/85; BMI 19.5
--- NOTE | 2022-08-07 07:21 | ED_ITS ---
HPI - Abdominal Pain General: Chief Complaint: Abdominal Pain Stated Complaint: N/V Time Seen by Provider: 08/07/22 07:14 Source: patient Mode of arrival: ambulatory Limitations: no limitations History of Present Illness: 22-year-old male presents to the ER today for 2 days of diarrhea and 12 hours of nausea and vomiting. Patient reports his diarrhea is watery. He reports abdominal pain associated with nausea and vomiting. He reports he is just vomiting of a clear bile at this point. Patient reports the pain is in the mid to upper abdomen. He reports he hurts all over. He reports body aches but no fevers. Patient has not kept down any solids or liquids since last night. He denies any known sick contacts. Patient denies drug use. He reports he does vape but does not smoke. Review of Systems General: Reports: 10 or more systems reviewed and unremarkable except in HPI and below PFSH ED PFSH: Medical History Abdominal pain Nausea and vomiting in adult Surgical History No pertinent past surgical history Family History Other Hypertension Nausea and vomiting in adult Denies family history of Anesthesia complication Bleeding disorder Social History Smoking and tobacco status: former smoker Quit status (tobacco): has quit using tobacco Year quit tobacco: 2 or 3 months ago Second hand smoke exposure: No Alcohol intake: current Alcohol intake frequency: holidays/special occasions only Desire information about alcohol rehabilitation?: No Adopted: No Caregiver/support person: Yes Lives independently: Yes Household members: family Housing: House Marital status: Single Highest education level completed: High School Graduate service: No Current occupational status: employed Current occupational exposures/hazards: No Pets and animals: No Leisure activites: games, hunting and fishing Sexually active: Yes Current gender identity: Male Meg/[employer]: [employer] Special meg needs: No Agree to transfusion: No Financial difficulty paying for basics: Decline to Answer Physical Exam Const: COMMON NORMALS: average body habitus, patient oriented x3, no limitations, healthy appearing and alert; apparent distress (constant motion, crying in pain) HENMT: COMMON NORMALS: normocephalic, atraumatic, external ears normal, Normal nasal mucous membranes and turbinates present and moist oral mucous membranes HEAD & SCALP: normocephalic and atraumatic NOSE: Normal nasal mucous membranes and turbinates present EXTERNAL EAR: Yes external ears normal Eye: COMMON NORMALS: conjunctivae normal CONJUNCTIVA: Yes conjunctivae normal Lymph: LYMPHATIC: no lymphadenopathy noted Resp: COMMON NORMALS: normal respiratory effort, No retractions and clear to auscultation bilaterally AUSCULTATION: clear to auscultation bilaterally Cardio: COMMON NORMALS: regular rate, regular rhythm and No murmurs present (Cardio) RATE: regular rate RHYTHM: regular rhythm GI: OTHER: Patient guarded and uncomfortable so abdominal exam is difficult to obtain. Diffuse tenderness to very light palpation. Pain out of proportion to exam. : COMMON NORMALS: Yes no CVA tenderness BLADDER/KIDNEY EXAM: Yes no CVA tenderness Back/Pelvis: COMMON NORMALS: no CVA tenderness Extremity: COMMON NORMALS: normal to inspection, full ROM and no pedal edema Neuro: COMMON NORMALS: patient oriented x3 SENSORIUM/ORIENTATION: Yes alert Psych: COMMON NORMALS: mental status grossly normal and Normal thought process present THOUGHT PROCESS: Normal thought process present Skin: COMMON NORMALS: no rashes or lesions noted and no wounds GENERAL SKIN EXAM: no rashes or lesions noted Course ED course: Patient presents for 12 hours of nausea and vomiting and a couple days of diarrhea. Patient not taking the dicyclomine he has at home. Did attempt to take some Reglan or Zofran at home but threw it back up. Patient appears very uncomfortable however pain is out of proportion to exam. Very guarded and difficult to obtain an abdominal exam. We will start with lab work, fluids, and Zofran. Patient given some Toradol for pain. Will consider imaging based on oma bs and patient's improvement with medications. Reevaluation(s): Reevaluation #1: Patient was reevaluated by STEVE Ruiz. She reports upon entering the room he was asleep and resting comfortably. Patient refuses urine, saying he just knows he cannot go. He did admit to her that he has eaten edible Gummies in the last 1 to 2 weeks despite relaying to me that he had not. He does have a past history of probable hyperemesis from cannabis use. We will give patient a little bit longer to see if he can get his urine. Given his pain and discomfort have improved with the fluids, Zofran and Toradol, and given patient has an IV contrast allergy, we will continue to monitor. I prefer to not do any type of imaging as it will not be very accurate without contrast. If patient's discomfort continues to improve and he appears comfortable we can send him home with these medications to do at home. Time: 08:41 Vital Signs: Vital signs: Vital Signs Respiratory Rate 20 H 08/07/22 07:34 Blood Pressure 131/85 08/07/22 07:04 MDM - Abdominal Pain Medical Decision Making Patient has a slightly elevated white count however that is not uncommon in something like gastroenteritis. Based on history and physical exam, I suspect a viral gastroenteritis. Patient does not appear to have a surgical abdomen. His pain is out of proportion to exam. When the nurse checked on patient he was resting comfortably however when I went in he was still crawling all over the bed complaining of belly pain. Patient did admit the nausea had been better for a while but is back now. He has had no episodes of diarrhea since being here. Patient refuses to give us a urine. He did admit to edible marijuana use in the last 1 to 2 weeks with a history of probable hyperemesis due to marijuana. I discussed with patient that given his iodine allergy, a CT without contrast is not going to show me near as much and based on the history and patient's current lab values, I do not think a CT is warranted at this time. Patient has both Be ntyl and Zofran at home which she has been given in the past. I advised that he take this. I would recommend a brat diet and bland foods. Sip on fluids over the next 24 to 48 hours. Likely symptoms resolved within 24 to 48 hours. If anything changes and patient starts running fevers or symptoms are worsening, return to the ER. Patient verbalized understanding and was in agreement with the treatment plan. Lab Data 08/07/22 07:20 08/07/22 07:20 Labs/Radiology: Laboratory Results WBC 12.1 10^3/uL (4.0-10.0) H 08/07/22 07:20 RBC 5.15 10^6/uL (4.1-5.3) 08/07/22 07:20 Hgb 15.3 g/dL (11.7-16.6) 08/07/22 07:20 Hct 45.6 % (42.0-52.0) 08/07/22 07:20 MCV 88.5 fl (80-94) 08/07/22 07:20 MCH 29.7 pg (28.0-34.0) 08/07/22 07:20 MCHC 33.6 g/dL (30.0-36.0) 08/07/22 07:20 RDW 11.9 % (12.1-15.1) L 08/07/22 07:20 Plt Count 174 10^3/cmm (130-400) 08/07/22 07:20 MPV 12.0 fL (7.4-10.4) H 08/07/22 07:20 Neut % (Auto) 78.0 % 08/07/22 07:20 Lymph % (Auto) 13.6 % 08/07/22 07:20 [place] % (Auto) 5.5 % 08/07/22 07:20 Eos % (Auto) 2.4 % 08/07/22 07:20 Baso % (Auto) 0.2 % 08/07/22 07:20 Neut # (Auto) 9.41 10^3/uL (1.8-7.7) H 08/07/22 07:20 Lymph # (Auto) 1.6 10^3/uL (0.8-4.8) 08/07/22 07:20 [place] # (Auto) 0.7 10^3/uL (0.2-0.9) 08/07/22 07:20 Eos # (Auto) 0.3 10^3/uL (0.0-0.8) 08/07/22 07:20 Baso # (Auto) 0.0 10^3/uL (0.0-0.1) 08/07/22 07:20 Nucleated RBC % (auto) 0 % 08/07/22 07:20 Nucleated RBCs # 0.0 /100WBC 08/07/22 07:20 Sodium 135 mmol/L (136-145) L 08/07/22 07:20 Potassium 4.0 mmol/L (3.5-5.1) 08/07/22 07:20 Chloride 97 mmol/L (98-107) L 08/07/22 07:20 Carbon Dioxide 22 mmol/L (22-29) 08/07/22 07:20 Anion Gap 20.0 (5-19) H 08/07/22 07:20 BUN 13 mg/dL (6-20) 08/07/22 07:20 Creatinine 0.8 mg/dL (0.7-1.2) 08/07/22 07:20 GFR Calculation 120.9 mL/min (90-130) 08/07/22 07:20 Glucose 124 mg/dL (65-115) H 08/07/22 07:20 Calculated Osmolality 282 mOsm/kg (285-295) L 08/07/22 07:20 Calcium 9.9 mg/dL (8.5-10.5) 08/07/22 07:20 Total Bilirubin 0.5 mg/dL (0.15-1.2) 08/07/22 07:20 AST 25 U/L (0-40) 08/07/22 07:20 ALT 16 U/L (0-41) 08/07/22 07:20 Alkaline Phosphatase 71 U/L (40-130) 08/07/22 07:20 Total Protein 7.9 g/dL (6.6-8.7) 08/07/22 07:20 Albumin 4.8 g/dL (3.5-5.2) 08/07/22 07:20 Globulin 3.1 g/dL (1.3-4.6) 08/07/22 07:20 Lipase 18 U/L (13-60) 08/07/22 07:20 Critical Care Time Critical Care Time: Critical Care Time: No Discharge Plan Discharge Patient Disposition: Home Clinical Impression: Gastroenteritis Condition: Stable Prescriptions: No Action diphenhydramine HCl [Benadryl] 25 mg Capsule 25 mg PO BEDTIME PRN (Reason: allergies) montelukast 10 mg tablet 10 mg PO QAM ondansetron 4 mg tablet,disintegrating 4 mg PO DAILY PRN (Reason: Nausea And Vomiting) Reglan 10 mg tablet 10 mg PO Q6H PRN (Reason: nausea and vomiting) Qty: 20 0RF dicyclomine 20 mg tablet 20 mg PO QID PRN (Reason: Abdominal cramping and pain) Qty: 20 0RF Discharge Orders: Discharge ED (Routine); Ordered 08/07/22 Ordered By: Leanne Nolasco Discharge Diet: Advance as tolerated Discharge Activity: Increase activity as tolerated Patient Instructions: Opioid Safety, Pain Management Activity Restrictions/Additional Instructions: [place] diet recommended. Bananas, rice, applesauce, toast. Take Zofran or Reglan that you have been prescribed at home. Avoid all marijuana including edibles as that can worsen nausea and vomiting. Alternate Tylenol and ibuprofen for pain. Sip on fluids frequently and rehydrate with Gatorade, Powerade, or Pedialyte. Follow-up with PCP in 2-3 days. Return to the ER with new or worsening symptoms. Coding Level of Care Code ED Car Refinisher for Casey Del Toro
[2022-08-07 07:27] LABS: Basophils % 0.2 %; Eosinophils # 0.3 10^3/uL (0.0-0.8); Eosinophils % 2.4 %; Hematocrit 45.6 % (42.0-52.0); Hemoglobin 15.3 g/dL (11.7-16.6); Lymphocytes # 1.6 10^3/uL (0.8-4.8); Lymphocytes % 13.6 %; Mean Corpuscular HGB Conc 33.6 g/dL (30.0-36.0); Mean Corpuscular Hemoglobin 29.7 pg (28.0-34.0); Mean Corpuscular Volume 88.5 fl (80-94); Monocytes # 0.7 10^3/uL (0.2-0.9); Monocytes % 5.5 %; Neutrophils # 9.41 10^3/uL (1.8-7.7); Nucleated Red Blood Cells % 0 %; Platelet Count 174 10^3/cmm (130-400); Red Blood Count 5.15 10^6/uL (4.1-5.3); Red Cell Distribution Width 11.9 % (12.1-15.1); White Blood Count 12.1 10^3/uL (4.0-10.0)
[2022-08-07 07:34] VITALS: RESP 20
[2022-08-07] MEDS: ketorolac 30 mg/mL INJ 15 MG IVP (07:41)
[2022-08-07] MEDS: ondansetron 2 mg/ML SDV 2 mL 4 MG IVP ×2 (07:41→09:22)
[2022-08-07 07:43] LABS: Slide Review Slide Review Perform
[2022-08-07] MEDS: sodium chloride 0.9% 1,000 ML 999 ML IV (07:59)
[2022-08-07 08:05] LABS: Alanine Aminotransferase 16 U/L (0-41); Albumin Level 4.8 g/dL (3.5-5.2); Alkaline Phosphatase 71 U/L (40-130); Blood Urea Nitrogen 13 mg/dL (6-20); Calcium 9.9 mg/dL (8.5-10.5); Carbon Dioxide 22 mmol/L (22-29); Chloride 97 mmol/L (98-107); Globulin 3.1 g/dL (1.3-4.6); Glomerular Filtration Rate 120.9 mL/min (90-130); Glucose 124 mg/dL (65-115); Lipase 18 U/L (13-60); Osmolality Calculated 282 mOsm/kg (285-295); Sodium 135 mmol/L (136-145); Total Bilirubin 0.5 mg/dL (0.15-1.2); Total Protein 7.9 g/dL (6.6-8.7)
[2022-08-07 08:11] LABS: Aspartate Amino Transferase 25 U/L (0-40)
[2022-08-07] MEDS: dicyclomine 10 mg Capsule PO (09:56)
--- NOTE | 2022-08-11 13:31 | DCPLANNER ---
assistant manager/embalmer called patient due to no primary care physician - phone number is no longer in service
== END 2022-08-07 10:28 | disposition home or self-care (01) ==
PROVIDERS: Emergency Provider Physician Assistant
DX: K52.9 Noninfective gastroenteritis and colitis, unspecified (principal); Z87.891 Personal history of nicotine dependence
CPT/HCPCS: 80053; 83690; 85025; 96361; 96374; 96375; 96376; 99284; J1885; J2405; J7030

== ENCOUNTER → 2023-01-08 16:21 | Outpatient (BNVA) | payer MEDICAID, SELFPAY | PROVIDERS: Visit Provider Nurse Practitioner Family | DX: Z20.822 Contact with and (suspected) exposure to COVID-19 (principal); R51.9 Headache, unspecified; R05.9 Cough, unspecified; J34.89 Other specified disorders of nose and nasal sinuses; J06.9 Acute upper respiratory infection, unspecified | CPT/HCPCS: 87426 ==

== ENCOUNTER 2023-02-11 23:43 | Emergency (ER) | payer MEDICAID, SELFPAY ==
[2023-02-11 23:55] VITALS: BMI 19.3
[2023-02-12] VITALS: BP 142/83; PULSE 93; RESP 16; TEMP 36.7; O2SAT 100
[2023-02-12] MEDS: ondansetron 2 mg/ML SDV 2 mL 4 MG IVP (01:02)
[2023-02-12] MEDS: diphenhydrAMINE 50 mg/mL SDV 1mL 25 MG IVP (01:03)
[2023-02-12] MEDS: haloperidol inj 5 mg/mL INJ 1 mL 3 MG IVP (01:04)
[2023-02-12] MEDS: sodium chloride 0.9% 1,000 ML 999 ML IV ×2 (01:05→02:11)
[2023-02-12 01:07] VITALS: BP 103/52; PULSE 71; RESP 16; O2SAT 100
[2023-02-12 01:14] LABS: Basophils % 0.3 %; Eosinophils % 0.2 %; Hematocrit 46.9 % (37-53); Lymphocytes # 1.5 10^3/uL (0.8-4.8); Lymphocytes % 11.4 %; Mean Corpuscular HGB Conc 34.3 g/dL (30-55); Mean Corpuscular Hemoglobin 30.7 pg (27-33); Mean Corpuscular Volume 89.3 fl (82-101); Mean Platelet Volume 11.9 fL (7.4-10.4); Monocytes % 7.8 %; Neutrophils # 10.43 10^3/uL (1.8-7.7); Nucleated Red Blood Cells % 0 %; Platelet Count 270 10^3/cmm (157-399); Red Blood Count 5.25 10^6/uL (3.85-5.65); Red Cell Distribution Width 12.3 % (12.1-15.1); White Blood Count 13.03 10^3/uL (3.29-11.43)
[2023-02-12 01:21] LABS: Alanine Aminotransferase 20 U/L (0-41); Albumin Level 5.9 g/dL (3.5-5.2); Alkaline Phosphatase 91 U/L (40-130); Anion Gap 26.6 (5-19); Aspartate Amino Transferase 31 U/L (0-40); Blood Urea Nitrogen 19 mg/dL (6-20); Carbon Dioxide 24 mmol/L (22-29); Chloride 93 mmol/L (98-107); Globulin 2.8 g/dL (1.3-4.6); Glomerular Filtration Rate 105.5 mL/min (90-130); Glucose 140 mg/dL (65-115); Lipase 11 U/L (13-60); Osmolality Calculated 293 mOsm/kg (285-295); Potassium 4.6 mmol/L (3.5-5.1); Sodium 139 mmol/L (136-145); Total Bilirubin 1.6 mg/dL (0.15-1.2); Total Protein 8.7 g/dL (6.6-8.7)
[2023-02-12 02:00] VITALS: BP 102/62; PULSE 75; RESP 16; O2SAT 97
--- NOTE | 2023-02-12 02:29 | W.ED.NAVMDI ---
HPI - Nausea/Vomiting/Diarrhea General: Chief complaint: Nausea/Vomiting/Diarrhea Stated complaint: Tick Fever Time Seen by Provider: 02/12/23 02:07 History of Present Illness: 22-year-old male with a history of alpha gal deficiency. He presents with violent vomiting for the past 20 hours or so. Family member says that he has eaten beef and pork within the last 20 hours or so, which she believes started the illness. He says that this is usually what happens. No fever. No diarrhea. Associated nausea: Yes Associated symtoms: Reports nausea; Denies change in vision, chest pain, dizziness, headache(s) or palpitations Review of Systems Const: Denies: fever(s), chills or body aches Eyes: Denies: change in vision Card: Denies: chest pain or palpitations Resp: Denies: dyspnea, productive cough, non-productive cough or wheezing GI: Reports: abdominal pain, nausea and vomiting; Denies: diarrhea or hematochezia Skin/Breast: Denies: rash Neuro: Denies: headache(s), weakness in extremities, dizziness or confusion PFSH ED PFSH: Medical History Abdominal pain Nausea and vomiting in adult Surgical History No pertinent past surgical history Family History Other Hypertension Nausea and vomiting in adult Denies family history of Anesthesia complication Bleeding disorder Social History Smoking and tobacco/nicotine status: former use of tobacco/nicotine Quit status (tobacco/nicotine): has quit using Year quit tobacco: 2 or 3 months ago Second hand smoke exposure: No Alcohol intake: current Alcohol intake frequency: holidays/special occasions only Substance/Drug Use: never Adopted: No Caregiver/support person: Yes Lives independently: Yes Household members: family Housing: House Marital status: Single Highest education level completed: High School Graduate service: No Current occupational status: employed Current occupational exposures/hazards: No Pets and animals: No Leisure activites: games, hunting and fishing Sexually active: Yes Do you think of yourself as: Straight/Heterosexual Current gender identity: Male Meg/Holiness: Adventist Special meg needs: No Agree to transfusion: No Physical Exam Const: COMMON NORMALS: no acute distress GENERAL APPEARANCE: cooperative; not ill appearing and not frail appearing HENMT: COMMON NORMALS: normocephalic, atraumatic and Normal external nose present HEAD & SCALP: normocephalic and atraumatic FACE & SINUS: normal facial exam and face symmetric NOSE: Normal external nose present Eye: COMMON NORMALS: Equal, round and reactive pupils present and EOMs intact bilaterally PUPIL: Yes Equal, round and reactive pupils present Neck/C-Spine: GENERAL: Yes trachea midline Chest: CHEST: Yes Symmetrical chest wall rise Resp: COMMON NORMALS: normal respiratory effort, No retractions, No use of accessory muscles and clear to auscultation bilaterally AUSCULTATION: clear to auscultation bilaterally Cardio: COMMON NORMALS: regular rate and regular rhythm RATE: regular rate RHYTHM: regular rhythm GI: COMMON NORMALS: Normal to inspection, nondistended, normoactive bowel sounds present Extremity: COMMON NORMALS: no pedal edema Neuro: MARLA COMA SCALE: document GCS findings [place] coma scale eye opening: Spontaneous [place] coma scale verbal response: Orientated [place] coma scale motor response: Obey commands [place] coma scale total score: 15 SENSORY EXAM: Yes extremities (intact) Psych: COMMON NORMALS: speech normal SPEECH: Yes normal speech Skin: COMMON NORMALS: no rashes or lesions noted GENERAL SKIN EXAM: no rashes or lesions noted Course Vital Signs: Vital signs: Vital Signs Temperature 98.0 F 02/12/23 00:00 Pulse Rate 81 02/12/23 02:41 Respiratory Rate 16 02/12/23 02:41 Blood Pressure 95/58 02/12/23 02:41 Pulse Oximetry 98 02/12/23 02:41 MDM - Nausea/Vomiting/Diarrhea Medical Decision Making Patient is improved. Vomiting has stopped. White blood cell count is 13, but CRP is 3. Lipase is normal. Patient is nontender on exam. Other laboratory parameters are essentially unremarkable. Bilirubin is mildly elevated at 1.6. Other liver enzymes are normal. He will be allowed discharge. Sublingual Zyprexa for vomiting for the next 24 hours. Lab Data 02/12/23 00:38 02/12/23 00:38 Laboratory Results WBC 13.03 10^3/uL (3.29-11.43) H 02/12/23 00:38 RBC 5.25 10^6/uL (3.85-5.65) 02/12/23 00:38 Hgb 16.10 g/dL (11.27-16.99) 10 00:38 Hct 46.9 % (37-53) 02/12/23 00:38 MCV 89.3 fl (82-101) 02/12/23 00:38 MCH 30.7 pg (27-33) 02/12/23 00:38 MCHC 34.3 g/dL (30-55) 02/12/23 00:38 RDW 12.3 % (12.1-15.1) 02/12/23 00:38 Plt Count 270 10^3/cmm (157-399) 02/12/23 00:38 MPV 11.9 fL (7.4-10.4) H 02/12/23 00:38 Neut % (Auto) 80.0 % 02/12/23 00:38 Lymph % (Auto) 11.4 % 02/12/23 00:38 [place] % (Auto) 7.8 % 02/12/23 00:38 Eos % (Auto) 0.2 % 02/12/23 00:38 Baso % (Auto) 0.3 % 02/12/23 00:38 Neut # (Auto) 10.43 10^3/uL (1.8-7.7) H 02/12/23 00:38 Lymph # (Auto) 1.5 10^3/uL (0.8-4.8) 02/12/23 00:38 [place] # (Auto) 1.0 10^3/uL (0.2-0.9) H 02/12/23 00:38 Eos # (Auto) 0.0 10^3/uL (0.0-0.8) 02/12/23 00:38 Baso # (Auto) 0.0 10^3/uL (0.0-0.1) 02/12/23 00:38 Nucleated RBC % (auto) 0 % 02/12/23 00:38 Nucleated RBCs # 0.0 /100WBC 02/12/23 00:38 Sodium 139 mmol/L (136-145) 02/12/23 00:38 Potassium 4.6 mmol/L (3.5-5.1) 02/12/23 00:38 Chloride 93 mmol/L (98-107) L 02/12/23 00:38 Carbon Dioxide 24 mmol/L (22-29) 02/12/23 00:38 Anion Gap 26.6 (5-19) H 02/12/23 00:38 BUN 19 mg/dL (6-20) 02/12/23 00:38 Creatinine 0.9 mg/dL (0.7-1.2) 02/12/23 00:38 GFR Calculation 105.5 mL/min (90-130) 02/12/23 00:38 Glucose 140 mg/dL (65-115) H 02/12/23 00:38 Calculated Osmolality 293 mOsm/kg (285-295) 02/12/23 00:38 Calcium 11.0 mg/dL (8.5-10.5) H 02/12/23 00:38 Total Bilirubin 1.6 mg/dL (0.15-1.2) H 02/12/23 00:38 AST 31 U/L (0-40) 02/12/23 00:38 ALT 20 U/L (0-41) 02/12/23 00:38 Alkaline Phosphatase 91 U/L (40-130) 02/12/23 00:38 C-Reactive Protein 3.0 mg/L (0.0-4.9) 02/12/23 00:38 Total Protein 8.7 g/dL (6.6-8.7) 02/12/23 00:38 Albumin 5.9 g/dL (3.5-5.2) H 02/12/23 00:38 Globulin 2.8 g/dL (1.3-4.6) 02/12/23 00:38 Lipase 11 U/L (13-60) L 02/12/23 00:38 No radiology studies performed this visit Discharge Plan Discharge Patient Disposition: Home Clinical Impression: Deficiency of alpha-galactosidase, Vomiting Condition: Stable Prescriptions: New ondansetron 4 mg film 4 mg PO DAILY PRN (Reason: nausea and vomiting) Qty: 10 0RF Zyprexa Zydis 5 mg tablet,disintegrating 10 mg PO BID Qty: 8 0RF No Action rqpgitcnryqrvob-mupyvvogi-QT [Bromfed DM] 2-30-10 mg/5 mL syrup 5 ml PO Q6H PRN (Reason: cold symptoms) Qty: 118 0RF cetirizine 1 mg/mL solution 10 mg PO BID Qty: 473 0RF Discharge Orders: Discharge ED (Routine); Ordered 02/12/23 Ordered By: Abdirizak Young Referrals: Robbi Mckay MD [Primary Care Provider] - 4-7 days Patient Instructions: Opioid Safety, Pain Management, Vomiting - Adult Activity Restrictions/Additional Instructions: Take olanzapine twice daily for 2 days as instructed. You may use the other medication for breakthrough vomiting if needed. Avoid red meat products. Return for any worsening symptoms. Coding Level of Care Code ED Tubular Splitting Machine Tender for Casey Del Toro
[2023-02-12 02:41] VITALS: BP 95/58; PULSE 81; RESP 16; O2SAT 98
== END 2023-02-12 03:01 | disposition home or self-care (01) ==
PROVIDERS: Emergency Provider Emergency Medicine; PCP Family Medicine
DX: R11.0 Nausea (principal); Z91.014 Allergy to mammalian meats
CPT/HCPCS: 36415; 80053; 83690; 85025; 86140; 96361; 96374; 96375; 99284; J1200; J1630; J2405; J7030

== ENCOUNTER 2023-04-24 18:22 | Emergency (ER) | payer MEDICAID, SELFPAY ==
[2023-04-24 18:34] VITALS: BP 148/81; PULSE 81; RESP 18; TEMP 36.6; O2SAT 98; BMI 18.3
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
[2023-04-24 19:24] VITALS: BP 112/73; PULSE 79; RESP 15; O2SAT 97
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
== END 2023-04-24 20:31 | disposition home or self-care (01) ==
PROVIDERS: Emergency Provider Nurse Practitioner; PCP Family Medicine
DX: R51.9 Headache, unspecified (principal); Z87.891 Personal history of nicotine dependence; Y04.2XXA Assault by strike against or bumped into by another person, initial encounter; Z11.52 Encounter for screening for COVID-19
CPT/HCPCS: 70486; 87400; 87426; 87880; 99284

== ENCOUNTER → 2024-04-14 12:51 | Outpatient (BNVA) | payer MEDICAID, SELFPAY | PROVIDERS: PCP Family Medicine; Visit Provider Emergency Medicine | DX: J02.9 Acute pharyngitis, unspecified (principal) | CPT/HCPCS: 87880 ==

== ENCOUNTER 2024-05-11 12:47 | Emergency (ER) | payer MEDICAID, SELFPAY ==
[2024-05-11 12:51] VITALS: BP 105/76; PULSE 81; RESP 17; TEMP 36.4; O2SAT 100; BMI 17.8
--- NOTE | 2024-05-11 13:06 | ED_ITS ---
HPI - Nausea/Vomiting/Diarrhea 2 General: Chief complaint: Nausea/Vomiting/Diarrhea Stated complaint: vomitting Time Seen by Provider: 05/11/24 12:55 Source: patient Mode of arrival: ambulatory Limitations: no limitations History of Present Illness: 23-year-old male states he has been havi ng nausea vomiting along with abdominal cramping over the last 24 hours. States had multiple episodes of vomiting he denies any worse improving factors denies any severe abdominal pain states he feels slightly dehydrated. Associated nausea: Yes Associated symtoms: Reports nausea; Denies chest pain, dysuria or headache(s) Related Data Home Medications Medication Instructions Recorded Confirmed omeprazole magnesium 20 mg 20 mg PO BID 05/11/24 05/11/24 tablet,delayed release (Prilosec OTC) ondansetron HCl 4 mg tablet 4 mg PO Q4H 05/11/24 05/11/24 Previous Rx's Medication Instructions Recorded albuterol sulfate 90 mcg/actuation 2 puff inhalation Q6H PRN 04/14/24 aerosol inhaler shortness of breath or wheezing #8.5 grams ondansetron 4 mg disintegrating 4 mg PO Q6H PRN nausea and 05/11/24 tablet vomiting #14 tabs Allergies Allergy/AdvReac Type Severity Reaction Status Date / Time iodine Allergy ADR-Vomitin Verified 04/14/24 12:31 g Review of Systems 2 Const: Denies: fever(s), chills, body aches or change in appetite ENMT: Denies: throat pain or dental pain Card: Denies: chest pain Resp: Denies: dyspnea GI: Reports: abdominal pain, nausea, vomiting and diarrhea : Denies: dysuria Musc: Denies: neck pain or back pain Skin/Breast: Denies: rash Neuro: Denies: headache(s) PFSH ED 2 PFSH: Medical History Abdominal pain Nausea and vomiting in adult Surgical History No pertinent past surgical history Family History Other Hypertension Nausea and vomiting in adult Denies family history of Anesthesia complication Bleeding disorder Social History Smoking and tobacco/nicotine status: current every day tobacco/nicotine user Quit status (tobacco/nicotine): has quit using Year quit tobacco: 2 or 3 months ago Second hand smoke exposure: No Alcohol intake: current Alcohol intake frequency: holidays/special occasions only Substance/Drug Use: never Adopted: No Caregiver/support person: Yes Lives independently: Yes Household members: family Housing: House Marital status: Single Highest education level completed: High School Graduate service: No Current occupational status: employed Current occupational exposures/hazards: No Pets and animals: No Leisure activites: games, hunting and fishing Sexually active: Yes Do you think of yourself as: Straight/Heterosexual Current gender identity: Male Meg/Mu-Ism: Religious Special meg needs: No Agree to transfusion: No Physical Exam 2 Const: COMMON NORMALS: no acute distress, patient oriented x3 and healthy appearing HENMT: COMMON NORMALS: normocephalic and atraumatic HEAD & SCALP: n ormocephalic and atraumatic Neck/C-Spine: COMMON NORMALS: full ROM and supple Chest: COMMONS NORMALS: normal inspection of the chest Resp: COMMON NORMALS: normal respiratory effort, No retractions, No use of accessory muscles and clear to auscultation bilaterally AUSCULTATION: clear to auscultation bilaterally Cardio: COMMON NORMALS: regular rate, regular rhythm and No murmurs present (Cardio) RATE: regular rate RHYTHM: regular rhythm GI: COMMON NORMALS: Normal to inspection, nondistended, normoactive bowel sounds present, Soft to palpation, non-tender and no masses PALPATION: Yes Soft to palpation Extremity: COMMON NORMALS: normal to inspection and full ROM Neuro: COMMON NORMALS: patient oriented x3, moves all extremities and no focal motor deficits Psych: COMMON NORMALS: mental status grossly normal, Normal thought process present and cooperative THOUGHT PROCESS: Normal thought process present Skin: COMMON NORMALS: no rashes or lesions noted and no wounds GENERAL SKIN EXAM: no rashes or lesions noted Course 2 Vital Signs: Vital signs: Vital Signs Temperature 97.6 F 05/11/24 12:51 Pulse Rate 85 05/11/24 15:54 Respiratory Rate 17 05/11/24 12:51 Blood Pressure 118/71 05/11/24 15:54 Pulse Oximetry 98 05/11/24 15:54 Oxygen Delivery Me thod Room Air 05/11/24 12:51 MDM - Nausea/Vomiting/Diarrhea Medical Decision Making Patient presents here with abdominal pain vomiting his pain is much improved. Able to tolerate p.o. no signs acute surgical abdomen no signs of small bowel obstruction will prescribe Zofran for home he is follow-up with PCP and return if worsening. Medical Records I reviewed the patient's medical records. Lab Data I reviewed the patient's lab results. 05/11/24 13:09 05/11/24 13:09 Laboratory Results WBC 8.22 10^3/uL (3.29-11.43) 05/11/24 13:09 RBC 4.77 10^6/uL (3.85-5.65) 05/11/24 13:09 Hgb 14.90 g/dL (11.27-16.99) 05/11/24 13:09 Hct 44.3 % (37-53) 05/11/24 13:09 MCV 92.9 fl (82-101) 05/11/24 13:09 MCH 31.2 pg (27-33) 05/11/24 13:09 MCHC 33.6 g/dL (30-55) 05/11/24 13:09 RDW 11.6 % (12.1-15.1) L 05/11/24 13:09 Plt Count 171 10^3/cmm (157-399) 05/11/24 13:09 MPV 11.2 fL (7.4-10.4) H 05/11/24 13:09 Neut % (Auto) 81.1 % 05/11/24 13:09 Lymph % (Auto) 7.7 % 05/11/24 13:09 [place] % (Auto) 9.2 % 05/11/24 13:09 Eos % (Auto) 1.2 % 05/11/24 13:09 Baso % (Auto) 0.4 % 05/11/24 13:09 Neut # (Auto) 6.67 10^3/uL (1.8-7.7) 05/11/24 13:09 Lymph # (Auto) 0.6 10^3/uL (0.8-4.8) L 05/11/24 13:09 [place] # (Auto) 0.8 10^3/uL (0.2-0.9) 05/11/24 13:09 Eos # (Auto) 0.1 10^3/uL (0.0-0.8) 05/11/24 13:09 Baso # (Auto) 0.0 10^3/uL (0.0-0.1) 05/11/24 13:09 Nucleated RBC % (auto) 0 % 05/11/24 13:09 Nucleated RBCs # 0.0 /100WBC 05/11/24 13:09 Sodium 140 mmol/L (136-145) 05/11/24 13:09 Potassium 4.2 mmol/L (3.5-5.1) 05/11/24 13:09 Chloride 101 mmol/L (98-107) 05/11/24 13:09 Carbon Dioxide 24 mmol/L (22-29) 05/11/24 13:09 Anion Gap 19.2 (5-19) H 05/11/24 13:09 BUN 11 mg/dL (6-20) 05/11/24 13:09 Creatinine 0.8 mg/dL (0.7-1.2) 05/11/24 13:09 GFR Calculation 119.8 mL/min (90-130) 05/11/24 13:09 Glucose 109 mg/dL (65-115) 05/11/24 13:09 Calculated Osmolality 290 mOsm/kg (285-295) 05/11/24 13:09 Calcium 10.0 mg/dL (8.5-10.5) 05/11/24 13:09 Total Bilirubin 1.2 mg/dL (0.15-1.2) 05/11/24 13:09 AST 21 U/L (0-40) 05/11/24 13:09 ALT 19 U/L (0-41) 05/11/24 13:09 Alkaline Phosphatase 65 U/L (40-130) 05/11/24 13:09 Total Protein 7.3 g/dL (6.6-8.7) 05/11/24 13:09 Albumin 4.9 g/dL (3.5-5.2) 05/11/24 13:09 Globulin 2.4 g/dL (1.3-4.6) 05/11/24 13:09 Lipase 17 U/L (13-60) 05/11/24 13:09 No radiology studies performed this visit Discharge Plan Discharge Patient Disposition: Home Clinical Impression: Vomiting Condition: Stable Prescriptions: New ondansetron 4 mg tablet,disintegrating 4 mg PO Q6H PRN (Reason: nausea and vomiting) Qty: 14 0RF No Action albuterol sulfate 90 mcg/actuation HFA aerosol inhaler 2 puff inhalation Q6H PRN (Reason: shortness of breath or wheezing) Qty: 8.5 0RF ondansetron HCl 4 mg tablet 4 mg PO Q4H omeprazole magnesium [Prilosec OTC] 20 mg Tablet,Delayed Release (Dr/Ec) 20 mg PO BID Discharge Orders: Discharge ED (Routine); Ordered 05/11/24 Ordered By: Miguel Corey Referrals: Robbi Mckay MD [Primary Care Provider] - 4-7 days Discharge Diet: Advance as tolerated Discharge Activity: Resume usual activity Patient Instructions: Acute Nausea and Vomiting (ED) Coding Level of Care Code ED Parking Enforcement Manager for Casey Del Toro
[2024-05-11] MEDS: diphenhydrAMINE 50 mg/mL SDV 1mL IVP (13:13)
[2024-05-11] MEDS: metoclopramide 5 mg/mL SDV 2 mL 10 MG IVP (13:14)
[2024-05-11 13:16] LABS: Basophils % 0.4 %; Eosinophils # 0.1 10^3/uL (0.0-0.8); Eosinophils % 1.2 %; Hematocrit 44.3 % (37-53); Lymphocytes # 0.6 10^3/uL (0.8-4.8); Lymphocytes % 7.7 %; Mean Corpuscular HGB Conc 33.6 g/dL (30-55); Mean Corpuscular Hemoglobin 31.2 pg (27-33); Mean Corpuscular Volume 92.9 fl (82-101); Mean Platelet Volume 11.2 fL (7.4-10.4); Monocytes # 0.8 10^3/uL (0.2-0.9); Monocytes % 9.2 %; Neutrophils # 6.67 10^3/uL (1.8-7.7); Neutrophils % 81.1 %; Nucleated Red Blood Cells % 0 %; Platelet Count 171 10^3/cmm (157-399); Red Blood Count 4.77 10^6/uL (3.85-5.65); Red Cell Distribution Width 11.6 % (12.1-15.1); White Blood Count 8.22 10^3/uL (3.29-11.43)
[2024-05-11 13:33] LABS: Alanine Aminotransferase 19 U/L (0-41); Albumin Level 4.9 g/dL (3.5-5.2); Alkaline Phosphatase 65 U/L (40-130); Anion Gap 19.2 (5-19); Aspartate Amino Transferase 21 U/L (0-40); Blood Urea Nitrogen 11 mg/dL (6-20); Carbon Dioxide 24 mmol/L (22-29); Chloride 101 mmol/L (98-107); Creatinine Clr Calc Pharmacy 124.3836; Globulin 2.4 g/dL (1.3-4.6); Glomerular Filtration Rate 119.8 mL/min (90-130); Glucose 109 mg/dL (65-115); Lipase 17 U/L (13-60); Osmolality Calculated 290 mOsm/kg (285-295); Potassium 4.2 mmol/L (3.5-5.1); Sodium 140 mmol/L (136-145); Total Bilirubin 1.2 mg/dL (0.15-1.2); Total Protein 7.3 g/dL (6.6-8.7)
[2024-05-11 15:54] VITALS: BP 118/71; PULSE 85; O2SAT 98
== END 2024-05-11 15:55 | disposition home or self-care (01) ==
PROVIDERS: Emergency Provider Emergency Medicine; PCP Family Medicine
DX: R11.10 Vomiting, unspecified (principal); Z72.0 Tobacco use
CPT/HCPCS: 36415; 80053; 83690; 85025; 96374; 96375; 99284; J1200; J2765

== ENCOUNTER 2025-01-26 19:53 | Emergency (ER) | payer MEDICAID, SELFPAY ==
[2025-01-26 19:55] VITALS: BP 109/75; PULSE 79; RESP 22; TEMP 36.5; O2SAT 99; BMI 18.4
--- OUTSIDE RECORDS SUMMARY | 2025-01-26 20:01 | XMS_ITS | Clinical Summary ---
Author Organization [facility] Address [address] [place]: [place] [address] Care Team Providers Care Textiles Printer Name Role Phone Robbi Mckay MD Primary Care Provider [phone] Allergies Active Allergy Reactions Criticality Noted Date Comments Iodine Other (See Comments) 01/19/2023 Medications cetirizine (ZyrTEC) 10 mg tablet Take 10 mg by mouth daily. Active omeprazole (PriLOSEC) 20 mg Capsule, Delayed Release(E.C.) Take 20 mg by mouth daily. Active ondansetron (ZOFRAN ODT) 8 mg Tablet, Rapid Dissolve DISSOLVE 1 TABLET ON THE TONGUE TWICE DAILY FOR 4 DAYS NEEDED 3 Active montelukast (Singulair) 10 mg tablet Take 1 tablet every day by oral route at bedtime for 90 days. 3 Active Ventolin HFA 90 mcg/actuation inhaler Take 2 Puffs by inhalation every 4 hours as needed. 5 Active dicyclomine (BENTYL) 10 mg capsule Take 1 Capsule by mouth 3 times daily. 5 Active pantoprazole (PROTONIX) 40 mg Tablet, Delayed Release (E.C.) 40 mg. 5 Active ondansetron (ZOFRAN ODT) 4 mg Tablet, Rapid Dissolve 4 mg. 5 Active Active Problems No known active problems Encounters Date Type Department Care Team Description 01/07/2025 External Device Data STL ABSTRACTION Provider, Abstract 11/28/2024 4:00 PM CDT Telephone Check Up [facility] [place] [address] Gaye Murray NP Periumbilical abdominal pain (Primary Dx); Abnormal weight loss; Allergy to alpha-gal; Intermittent diarrhea; Cyclical vomiting syndrome 11/27/2024 Orders Only [facility] [place] [address] Robbi Mckay MD Cyclical vomiting syndrome (Primary Dx) from Last 3 Months Social History Tobacco Use Types Packs/Day Years Used Date Smoking Tobacco: Some Days Cigarettes Tobacco Cessation:Ready to Q uit: Not Asked; Counseling Given: Not Answered Feeling Safe Answer Date Recorded Are you in a relationship wi th someone who hurts you emotionally and/or physically? 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 [employer] Gender Identity Not on file Sexual Orientation Not on file Last Filed Vital Signs Vital Sign Reading Time Taken Comments Blood Pressure 104/62 01/24/2023 2:40 PM CDT Pulse 73 01/24/2023 2:40 PM CDT Temperature - - Respiratory Rate 12 01/24/2023 2:40 PM CDT Oxygen Saturation 99% 01/24/2023 2:40 PM CDT Inhaled Oxygen Concentration - - Weight 65.8 kg (145 lb) 11/28/2024 3:34 PM CDT Height 185.4 cm (6' 1 ) 11/28/2024 3:34 PM CDT Body Mass Index 19.13 11/28/2024 3:34 PM CDT Plan of Treatment Upcoming Encounters Date Type Department Care Team (Late st Contact Info) Description 02/06/2025 12:40 PM CDT Hospital Encounter [facility] [place] [address] [place], [place] [address] [address] [place] [id number] Jimy Sharma MD [address] [facility] [address] [place] [address] 02/06/2025 12:40 PM CDT - 02/06/2025 1:00 PM CDT Surgery [facility] [place] [address] [place] [address] Jimy Sharma MD [address] [facility] [address] [place] [address] COLONOSCOPY Scheduled Procedures Name Priority Associated Diagnoses Date/Ti me COLONOSCOPY Periumbilical abdominal pain Abnormal weight loss Intermittent diarrhea 02/06/2025 12:40 PM CDT Health Maintenance Due Date Last Done Comments HPV VACCINES (1 - Male 3-dos e series) 2015 INFLUENZA VACCINE (#1) 2024 DTAP/TDAP/TD VACCINES (7 - T d or Tdap) 12/30/2024 12/30/2014, 01/04/2006, 09/04/2001, Additional history exists HEPATITIS B VACCINES Completed 2000, 2000, 2000 Goals Goal Patient Goal Type Associated Problems Recent Progress Patient-Stated? Author Autogenerat ed Goal Care Plan Autogenerated Problem No Esha Caban Additional Health Concerns Active Problems Noted Date Diagnosed Date Autogenerated Problem 11/29/[address] [place] [place] [address] [employer] MEDICA[employer] Advance Directives For more information, please contact: [phone] * Full Code (Latest Code Status on File) Date Activated Date Inactivated Comments 01/24/2023 12:40 PM 01/24/2023 4:58 PM Care Teams Textiles Printer Relationship Specialty Start Date End Date Robbi Mckay MD [address] [facility] [place] [address] PCP - General Family Practice 01/24/23
--- OUTSIDE RECORDS SUMMARY | 2025-01-26 20:01 | XMS_ITS | Data Portability ---
Author Organization [facility] [place] [facility], [facility], [facility] Address [address] [facility] [address] [place] [address] Care Team Providers Care Towel Sorter Name Role Phone DI MCKAY Primary Care Provider Unavailabl e Assessment Encounter Date Assessment Date Assessment LastModified by Organization Details LastModified Time 05/21/2024 05/21/2024 Document scribed by Doug Ovalle Medical Billing Assistant. I was present during interview and exam. I have reviewed and agree with above documentation . Dr. Cam Rendon. [email or web address] Not available 05/21/2024 16:02:26 Plan of Treatment Reminders Order Date Submit Date Provider Last Modified By Organization Details Last Modified Time Details Appointments None recorded. Lab None recorded. Referral gastroenter ologist referral 2024 025 [email or web address] 2 [facility] , [address] [facility] [address], [place], [address], 5 10:58:37 EGD referral 2024 025 [email or web address] Not available 14:15:14 Procedures None recorded. Surgeries None recorded. Imaging None recorded. Medication Orders ondansetron 4 mg disintegrat ing tablet 2024 025 [facility] #[id number], [address], [place], [place], [id number], 05:01:10 pantoprazol e 40 mg tablet,ambreen yed release 2024 025 [facility] #95066, [address], [place], [place], [id number], 12:57:06 cyclobenzap rine 5 mg tablet 2024 [facility] #57586, [address], [place], [place], [id number], 17:16:13 prednisone 5 mg tablets in a dose pack 2024 [facility] #04422, [address], [place], [place], [id number], 12:44:10 dicyclomine 10 mg capsule 2024 [facility] #30288, [address], [place], [place], [id number], 11:59:37 ondansetron 4 mg disintegrat ing tablet 2024 [facility] #75199, [address], [place], [place], [id number], 5 05:01:10 Artificial Tears (glycerin-p eg) 1 %-0.3 % eye drops 2024 [facility] #99470, [address], [place], [place], [id number], 12:05:56 pantoprazol e 40 mg tablet,ambreen yed release 2024 [facility] #32173, [address], [place], [place], [id number], 11:59:39 montelukast 10 mg tablet 2024 [facility] #21229, [address], [place], [place], [id number], 11:59:41 albuterol sulfate HFA 90 mcg/actuati on aerosol inhaler 2024 025 [facility] #01135, [address], [place], [place], [id number], 11:59:38 cetirizine 10 mg tablet 2024 [facility] #65090, [address], [place], [place], [id number], 11:59:41 fluticasone propionate 50 mcg/actuati on nasal spray,suspe nsion 2024 [facility] #46414, [address], [place], [place], [id number], 11:59:36 dicyclomine 10 mg capsule 2024 [facility] #14564, [address], [place], [place], [id number], 5 16:14:22 albuterol sulfate HFA 90 mcg/actuati on aerosol inhaler 2024 [facility] #17946, [address], [place], [place], [id number], 5 16:12:33 montelukast 10 mg tablet 2024 [facility] #66585, [address], [place], [place], [id number], 16:12:34 Patient TargetsNo targets recorded. Patient InstructionsNo instructions recorded. 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 [email or web address] [facility] [address] , [place], [address], 05/31/2024 11:47:31 Result Notes None recorded. Problems Name Problem SNOMED Code Status Onset Date Resolution Date Notes Provider Name and Address Organization Details Recorded Time Inflammator y acne 513929772 Completed 202206/29/2024 Heena gómez [facility] 12:56:24 Cyclical vomiting syndrome 78775596 Active 2022 Heena gómez [facility] 12:55:47 Nausea and vomiting 77485534 Completed 202206/29/2024 Heena gómez [facility] 12:56:49 Mild intermitten t asthma 139609093 Active 2024 Heena gómez [facility] 12:56:30 Abdominal pain 31848133 Active 2024 Heena gómez [facility] 12:54:46 Nausea 235913913 Active 2024 Heena gómez [facility] 12:56:39 Gastritis 9599328 Active 2024 Heena gómez [facility] 12:56:11 Flash burn of eye 417334335 Active 2024 Di Mckay MD [address] [place], [address], [facility]ana 5 11:21:24 Problem Notes None recorded. Procedures Surgical History Date Name Laterality Status Provider Name and Address Organization Details Recorded Time 2024 esophagogastroduodenoscopy completed [facility] 5 11:39:19 2019 extraction of wisdom tooth completed [facility] 5 11:38:56 Imaging Results None recorded. Procedure Notes None recorded. Medical Equipment None Reported. Allergies Allergen ID Allergen Name Allergen Category Reaction Reaction Severity Criticality Documentation Date Start Date Code Code System Note Provider Name and Address Organization Details Recorded Time 1456 iodine medicatio n Not available Not available Not available 08/04/2022 5933 RxNorm Anuja Lanier null, [facility] 3 11:20:18 Medications Name Sig Start Date Stop Date Status Note LastModified by Organization Details LastModified Time promethaz ine-DM 6.25 mg-15 mg/5 mL oral syrup TAKE 7.5 ML BY MOUTH EVERY 6 HOURS NEEDED FOR COUGH active Not Available Not Available No t Available Delsym 12 hour 30 mg/5 mL oral suspensio n,extende d release Take 10 mL twice a day by oral route as needed. 05/14 completed Not Available Not Available Not Available cetirizin e 10 mg tablet TAKE 1 TABLET BY MOUTH EVERY DAY active Not Available Not Available No t Available azithromy travis 250 mg tablet TAKE 2 TABLETS BY MOUTH TODAY, THEN TAKE 1 TABLET DAILY ON DAYS 2-5 09/09 completed Not Available Not Available Not Available ibuprofen 800 mg tablet Take 1 tablet 3 times a day by oral route as needed for 7 days. 12/30 completed Not Available Not Available Not Available minocycli ne 100 mg capsule TAKE 1 CAPSULE BY MOUTH EVERY 12 HOURS 12/30 completed Not Available Not Available Not Available ondansetr on HCl 4 mg tablet TAKE 1 TABLET BY MOUTH EVERY 4 HOURS 06/25 completed Not Available Not Available Not Available tetracain e 0.5 % eye drops Apply 1 drop every day by ophthalm ic route as needed. active Not Available Not Available No t Available prednison e 20 mg tablet TAKE ONE TABLET BY MOUTH TWICE DAILY FOR 5 DAYS 09/09 completed Not Available Not Available Not Available prednison e 5 mg tablet 10/22 completed Not Available Not Available Not Available ciproflox acin 500 mg tablet TAKE 1 TABLET BY MOUTH TWICE DAILY 09/09 completed Not Available Not Available Not Available ondansetr on 8 mg disintegr ating tablet DISSOLVE 1 TABLET ON THE TONGUE TWICE DAILY FOR 4 DAYS NEEDED 02/11 completed Not Available Not Available Not Available dicyclomi ne 20 mg tablet TAKE 1 TABLET BY MOUTH FOUR TIMES DAILY NEEDED 12/30 completed Not Available Not Available Not Available dexametha sone 2 mg tablet 05/21 completed Not Available Not Available Not Available cephalexi n 500 mg capsule Take 1 capsule 3 times a day by oral route for 7 days. 12/30 completed Not Available Not Available Not Available pantopraz ole 40 mg tablet,de layed release TAKE 1 TABLET BY MOUTH EVERY DAY IN THE MORNING FOR STOMACH active Not Available Not Available No t Available omeprazol e 20 mg capsule,d elayed release TAKE 1 CAPSULE BY MOUTH EVERY DAY 10/10 completed Not Available Not Available Not Available monteluka st 10 mg tablet Take 1 tablet every day by oral route at bedtime for 90 days. 2024 active Not Available Not Available Not Avai lable mupirocin 2 % topical ointment APPLY A SMALL AMOUNT TO THE AFFECTED AREA BY TOPICAL ROUTE 3 TIMES PER DAY 10/10 completed Not Available Not Available Not Available prednison e 5 mg tablets in a dose pack Take 4 tabs po daily x 3 days, then 3 tabs po daily x 3 days, then 2 tabs po daily x 3 days, then 1 tab po daily x 3 days 10/22 completed Not Available Not Available Not Available albuterol sulfate HFA 90 mcg/actua tion aerosol inhaler INHALE 2 PUFFS BY MOUTH EVERY 4 HOURS NEEDED active Not Available Not Available No t Available ondansetr on 4 mg disintegr ating tablet Place 1 tablet 3 times a day by translin gual route as needed for 10 days. 01/19 completed Not Available Not Available Not Available fluticaso ne propionat e 50 mcg/actua tion nasal spray,cain pension SHAKE LIQUID AND USE 1 SPRAY IN EACH NOSTRIL EVERY DAY active Not Available Not Available No t Available clotrimaz ole 1 % topical cream APPLY TOPICALL Y TO THE AFFECTED AND SURROUND ING AREAS TWICE DAILY IN THE MORNING AND IN THE EVENING 10/10 completed Not Available Not Available Not Available dicyclomi ne 10 mg capsule Take 1 capsule 3 times a day by oral route as needed. 2024 active Not Available Not Available Not Avai lable metoclopr amide 10 mg tablet TAKE 1 TABLET BY MOUTH FOUR TIMES DAILY NEEDED 12/30 completed Not Available Not Available Not Available cyclobenz aprine 5 mg tablet TAKE 1 TABLET BY MOUTH EVERY DAY AT BEDTIME FOR MUSCLE PAIN OR SPASM active Not Available Not Available No t Available Mucinex D 60 mg-600 mg tablet,ex tended release Take 1 tablet 3 times a day by oral route as needed. 09/09 completed Not Available Not Available Not Available guaifenes in 09/09 completed Not Available Not Available Not Available Benadryl Allergy 10/10 completed 0; Recorded 11/06/19 3:57PM by Jihan Smith, Office Visit; Not Available Not Available Not Available lisinopri l daily 12/30 completed 0; Recorded 11/06/19 3:57PM by Jihan Smith, Office Visit; Not Available Not Available Not Available Tylenol 10/10 completed Not Available Not Available Not Available sildenafi l PRN 12/30 completed 0; Recorded 11/06/19 3:57PM by Jihan Smith, Office Visit; Not Available Not Available Not Available ondansetr on every 8 hours as needed for nausea 12/30 completed Mora DOC; Recorded 11/06/19 4:05PM by DIAMOND Rainey, Office Visit; Refill Quantity : 0; Not Available Not Available Not Available Qvar two times daily 12/30 completed Recorded 04/23/20 12:24PM by Jihan Smith, Office Visit; Refill Quantity : 1; Inhalati on; Not Available Not Available Not Available Artificia l Tears (glycerin -peg) 1 %-0.3 % eye drops Apply 1 drop every 2 hours by ophthalm ic route as needed. 2024 active Not Available Not Available Not Avai lable Vitals Date Recorded Body height Body mass index (BMI) Body weight Body temperature Oxygen saturation Oxygen saturation in Arterial blood by Pulse oximetry Heart rate Systolic And Diastolic Provider Name and Address Organization Details Last Updated DateTime 5 185.42 cm 17.6 kg/m2 97578.1 4 g 97.3 [degF] 96 % 96 % 84 /min 110/78 mm[Hg] MONTEZ ESPAÑA [facility] 5 15:49:37 Date Recorded Body height Body mass index (BMI) Body weight Oxygen saturation Oxygen saturation in Arterial blood by Pulse oximetry Heart rate Respiratory rate Systolic And Diastolic Provider Name and Address Organization Details Last Updated DateTime 5 185.42 cm 17.4 kg/m2 75149.1 9 g 99 % 99 % 98 /min 18 /min 112/74 mm[Hg] TAE HOPSON [facility] 5 15:44:58 Date Recorded Body height Body mass index (BMI) Body weight Heart rate Oxygen saturation Oxygen saturation in Arterial blood by Pulse oximetry Respiratory rate Body temperature Systolic And Diastolic Provider Name and Address Organization Details Last Updated DateTime 5 185.42 cm 18.1 kg/m2 36574.1 5 g 89 /min 97 % 97 % 16 /min 98 [degF] 124/78 mm[Hg] Augustine Villeda [facility] 5 11:47:03 Date Recorded Body height Body mass index (BMI) Body weight Oxygen saturation Oxygen saturation in Arterial blood by Pulse oximetry Heart rate Body temperature Respiratory rate Systolic And Diastolic Provider Name and Address Organization Details Last Updated DateTime 5 185.42 cm 17.8 kg/m2 49433.3 7 g 98 % 98 % 74 /min 98 [degF] 17 /min 118/72 mm[Hg] JOSUE HINSON [facility] 5 16:40:08 Date Recorded Body height Body mass index (BMI) Body weight Oxygen saturation Oxygen saturation in Arterial blood by Pulse oximetry Heart rate Respiratory rate Body temperature Systolic And Diastolic Provider Name and Address Organization Details Last Updated DateTime 5 185.42 cm 17.8 kg/m2 52966.9 7 g 98 % 98 % 94 /min 16 /min 98 [degF] 96/64 mm[Hg] Heena Breezy [facility] 5 12:46:05 Social History Question Answer Notes LastModified by [employer] Details LastModified Time Tobacco Smoking Status Current Every Day Smoker [facility] 06/25/2024 11:38:25 What Is Your Level Of Caffeine Consumption? Moderate Information not available 06/25/2024 Which Illicit Or Recreational Drugs Have You Used? Marijuana Information not available 09/09/2022 What Was The Date Of Your Most Recent Tobacco Screening? 10/22/2024 [email or web address] Information not available 10/22/2024 How Much Tobacco Do You Smoke? 2 PPW [email or web address] Information not available 06/25/2024 Sex: Unknown Functional Status Question Answer Note LastModified by [employer] Details LastModified Time Do you use any illicit or recreational drugs? Yes Information not available 09/09/2022 Do you or have you ever used any other forms of tobacco or nicotine? No Information not available 09/09/2022 What is your level of alcohol consumption? Occasional Information not available 09/09/2022 Are you able to care for yourself independently? Yes Information not available 09/09/2022 Do you or have you ever used any nicotine-free cigarettes, vape, or chewing tobacco? No [email or web address] Information not available 06/25/2024 Mental Status None recorded. Family History Relationship Description Onset Age of this Age Resolved Age Notes LastModified by Organization Details LastModified Time Father Hypertensive disorder [email or web address] Not available 2024 11:54:11 Mother Lupus erythematosu s [email or web address] Not available 2024 11:54:24 Brother Epilepsy [email or web address] Not availab le 06/25/2024 11:54:32 Medical History No medical history recorded. Immunizations Vaccine Type Date Status Note Provider Nam e and Address Organization Details Recorded Time IPV 2000 completed DIANAA GREEN dalia [facility] 12/06/2022 19:35:57 IPV 09/04/2001 completed DIANAA GREEN dalia [facility] 12/06/2022 19:35:57 IPV 2000 completed CHERIATHA GREEN dalia [facility] 12/06/2022 19:35:57 IPV 01/04/2006 completed [facility] 12/06/2022 19:35:58 MMR 09/04/2001 completed TAMATHA GREEN null, [facility] 12/06/2022 19:35:58 MMR 01/04/2006 completed TAMATHA GREEN null, [facility] 12/06/2022 19:35:58 Tdap 12/30/2014 completed TAMATHA GREEN null, [facility] 12/06/2022 19:35:58 varicella 07/13/2001 completed TAMATHA GREEN null, [facility] 12/06/2022 19:35:58 Hep B, unspecified formulation 2000 completed [facility] 12/06/2022 19:35:58 Hep B, unspecified formulation 2000 completed DAINAA GREEN dalia [facility] 12/06/2022 19:35:58 Hep B, unspecified formulation 2000 completed TAMATHA GREEN null, [facility] 12/06/2022 19:35:58 pneumococcal, unspecified formulation 07/13/2001 completed TAMATHA GREEN null, [facility] 12/06/2022 19:35:58 pneumococcal, unspecified formulation 2000 completed TAMATHA GREEN null, [facility] 12/06/2022 19:35:58 pneumococcal, unspecified formulation 2000 completed TAMATHA GREEN null, [facility] 12/06/2022 19:35:58 pneumococcal, unspecified formulation 2000 completed TAMATHA GREEN null, [facility] 12/06/2022 19:35:58 Hib (PRP-T) 2000 completed TAMATHA GREEN null, [facility] 12/06/2022 19:35:58 Hib (PRP-T) 09/04/2001 completed TAMATHA GREEN null, [facility] 12/06/2022 19:35:58 Hib (PRP-T) 2000 completed TAMATHA GREEN null, [facility] 12/06/2022 19:35:58 Hib (PRP-T) 2000 completed TAMATHA GREEN null, [facility] 12/06/2022 19:35:58 DTaP 2000 completed TAMATHA GREEN null, [facility] 12/06/2022 19:35:58 DTaP 09/04/2001 completed TAMATHA GREEN null, [facility] 12/06/2022 19:35:58 DTaP 2000 completed TAMATHA GREEN null, [facility] 12/06/2022 19:35:58 DTaP 2000 completed MARIO gómez [facility] 12/06/2022 19:35:58 DTaP 01/04/2006 completed MARIO gómez [facility], [facility] 12/06/2022 19:35:58 Past Encounters Encounter ID Performer Location Encounter Start Date Encounter Closed Date Diagnosis/Indication Diagnosis SNOMED-CT Code Diagnosis ICD10 Code Diagnosis IMO Codes Diagnosis Note [id number] Brenden Mora MD [facility] ([facility]) [address] [place] [id number] 08/04/2022 11:03:43 08/10/2022 14:38:19 Sore throat 981342707 J02.9 Cough 20117472 R05.9 [id number] Di Mckay MD [facility]) [address] [place] [id number] 09/09/2022 16:08:36 09/09/2022 17:25:42 Inflammatory acne 137772887 L70.8 lesions on back c/w acne.....d iscussed skin care. start minocylcli ne. Dermatophytosis 82472902 B35.9 Cyclical v omiting syndrome 58302673 R11.15 likely from marijuana use. explained diagnosis and the role cessation has in resolution . continue as needed meds. We will send referral for endoscopy to r/o possible other causes. Seasonal a llergic rhinitis 737279339 J30.2 symptoms managed with singulair. [id number] DIAMOND CORBETT [facility] ([facility]) [address] [place] [id number] 12/06/2022 19:29:17 12/06/2022 19:55:52 Infection of skin and/or subcutaneous tissue 66357177 L08.9 [id number] DIAMOND CORBETT [facility] ([facility]) [address] [place] [id number] 5 12/13/2022 19:33:26 12/13/2022 20:11:18 Nausea, vomiting and diarrhea 4842903 R11.2 R19.7 [id number] ROHITH SOLARES [facility] ([facility]) [address] [place] [id number] 5 12/28/2022 12:42:57 12/28/2022 18:20:14 Nausea and vomiting 46409147 R11.2 Viral gastroenteritis 11 9309029 A08.4 Discussed with patient that this is viral and will need to run its course. COVID negative today, however, patient has had symptoms for less than 24 hours and recommend re-testing in 24 hours if still feeling bad. Can start zofran PRN today. Continue to push fluids and eat foods as tolerated. If fever occurs tylenol and ibuprofen are okay. If worsening condition or no improvemen t in 7-10 days, return for further evaluation . Discussed with patient that if pain becomes severe or worse, he needs to go to ED. Patient verbalized understand ing. [id number] Di Mckay MD [facility] ([facility]) [address] [place] [id number] 12/30/2022 11:58:30 01/02/2023 09:41:45 Nausea and vomiting 63609084 R11.2 We will check a few labs today including a alpha-gal panel. We will start him on omeprazole to see if this helps as gastritis is a possibilit y. We will work on gastroente rology referral. Tick bite 02399932 W57.X XXA Seasonal a llergic rhinitis 416054223 J30.2 Patient reports that he is cleared improvemen t of his allergies with Singulair. [id number] DIAMOND FAITH [facility] ([facility]) [address] [place] [id number] 10/11/2023 11:01:30 10/11/2023 13:26:34 [id number] Di Mckay MD [facility] ([facility]) [address] [place] [id number] 10/11/2023 14:42:50 10/11/2023 15:41:56 Seasonal allergic rhinitis 017869228 J30.2 Patient has had some improvemen t with the Singulair but was to increase his allergy treatment with Flonase and Zyrtec. Cough 73948229 R05.9 [id number] Di Mckay MD [facility] ([facility]) [address] [place] [id number] 02/12/2024 10:34:57 02/12/2024 11:46:31 Viral gastroenteritis 740315997 A08.4 Most likely gastroente ritis. Will provide Zofran to help with nausea. Continue to push fluids and start bland diet. Follow-up if symptoms do not improve. [id number] Di Mckay MD [facility] ([facility]) [address] [place] [id number] 5 05/14/2024 15:37:48 05/14/2024 16:17:58 Mild intermittent asthma 745679283 J45.20 Refills provided for his inhaler and Singulair. This continues to work well for him. Abdominal pain 27944137 R10.9 Will provide dicyclomin e to help with the bowel cramping. Nausea 954066015 R11.0 Nausea is a chronic recurrent issue. The patient has not had endoscopy done. The patient never did follow-up with gastroente rology. Will set the patient up for EGD for further evaluation . [id number] Cam Rendon DO [facility] ([facility]) [address] [place] [id number] 05/21/2024 15:16:18 05/24/2024 05:50:57 Abdominal pain 44386853 R10.9 I have reviewed and discussed EGD. Discussed risks vs benefits including risk of infection and bleeding, perforatio n, possible need for surgery, reaction to medication s, and sever injury or . We discussed pt requiring sedation and possible general anesthesia . Pt agrees to proceed with Colonoscop y at [facility]. Preliminar y procedure date will be . he will try to arrange transporat ion for 05/23/24, will let us know by tomorrow, o/w will plan for 06/20/24. [id number] Di Mckay MD [facility] ([facility]) [address] [place] [id number] 06/25/2024 11:22:58 06/25/2024 13:00:29 Seasonal allergic rhinitis 056720320 J30.2 Patient has had some improvemen t with the Singulair. Continue Flonase and cetirizine . Refills provided today. Abdominal pain 52759261 R10.9 Continue as needed dicyclomin e for bowel cramping. Mild inter mittent asthma 223596753 J45.20 Refills provided for his inhaler and Singulair. This continues to work well for him. Gastritis 0627013 K29.70 Reviewed EGD results. Continue Protonix. Flash burn of eye 599027 008 T26.40XA Will provide prescripti on for artificial tears to help as needed. Nausea 368135807 R11.0 Recommend that the patient do a trial of removing red meat from the diet since his alpha gal was high to see if this improves his symptoms. The patient was agreeable. [id number] DIAMOND BOWMAN [facility] ([facility]) [address] [place] [id number] 5 07/03/2024 16:10:26 07/05/2024 06:53:09 Low back pain 284811068 M54.50 Rest. Increase po fluids. RTC with any new or worsening symptoms. [id number] Di Mckay MD [facility] ([facility]) [address] [place] [address] [id number] 5 10/22/2024 12:39:55 10/22/2024 13:19:11 Cyclical vomiting syndrome 18891485 R11.15 Patient continues to have recurrent issues with vomiting. Has been worked up and alpha gal and gastritis were the only findings on the workup. The patient states that he has been compliant with eliminatin g red meat from his diet. Takes pantoprazo le daily. Proceed with gastroente rology referral at this time for additional evaluation Nausea [id number] R11.0 Zofran provided to use as needed to help with symptoms. Gastritis [id number] K29.70 Continue Protonix Health Concerns Section Related Observation LastModified by Organization Detai ls LastModified Time None Recorded Concern Status LastModified by Organization Details LastModified Time None Recorded Advance Directives Directive None Recorded Payers Insurance Date Sequence Insurance Name Policy Number Policy Shelby Covered Member ID Shelby Member ID Guarantor Name 10/28/2024 [facility] (MEDICAID HMO) Estevan Fregoso [id number] Estevan Fregoso 05/14/2024 1 [place] Estevan Fregoso [id number] Estevan Fregoso 10/22/2024 1 [facility] (MEDICAID HM) Estevan Fregoso [id number] Estevan Fregoso Notes Date Note Type Note Provider Name and Address Organization Details Recorded Time 05/14/2024 text/html NauseaReported b y PatientHPIFor associated symptoms, patient reportsabdominal pain,diarrhea, andvomiting. For duration, patient reportspresent for 1-2 weeks. For aggravating factors, patient reportseating.ROS as noted in the HPI This is a 23-year-old gentleman that comes in today for ER follow-up. The patient has been having persistent issues with abdominal pain and nausea. Patient has been worked up in the past for this and has not found any underlying etiology except for possible alpha gal. ER workup was unremarkable. Patient is wondering about medications to help with the bowel cramping. He also needs refills on his albuterol inhaler and Singulair that he uses for his mild asthma. Di Mckay MD [address] [place] [address], [phone], [facility] 05/16/2024 15:38:51 05/21/2024 text/html ROS as noted in the [facility] EDG consult, Dr. Mckay pt Persistent issues with abd pain and nausea. Nausea is a chronic recurrent issue. The patient has not had endoscopy done. The patient never did follow-up with gastroenterology. Taking Dicyclomine, Omeprazole. Cam Rendon DO [address] [place] [address], [phone], [facility] 05/22/2024 13:08:09 06/25/2024 text/html NauseaReported b y PatientHPIFor location, patient reportsdiffuse. Pt here today to discuss recent EGD results done on 05/23/24. He states that he has been having abdominal pain with diarrhea and a headache. The patient has been taking Protonix as recommended after the EGD. He is also c/o bilateral ear pain. Patient is also needing refills on his medication. Di Mckay MD [address] [place] [address], [phone], [facility] 06/27/2024 14:10:21 07/03/2024 text/html Back PainReporte d by PatientHPIFor severity, patient reportspain level 8/10but reportsunchanged. For location, patient reportslumbar __. For duration, patient reports3 days.ROS as noted in the HPI Patient c/o lower back pain. He states it started a couple days ago. No known injury. He states that if he sits in one place for too long that the pain is worse. He's taking Tylenol for it. DIAMOND BOWMAN [address] [place] [address], [phone], [facility] 07/04/2024 15:27:11 10/22/2024 text/html This is a 24-year-old gentleman that comes in today for follow-up. The patient continues to have spells of stomach pain and vomiting for couple hours a couple days a week. 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 Patient states that he needs refill on his medications and would like Zofran to use as needed for nausea. Di Mckay MD [address] [place] [address], [phone], [facility] 10/24/2024 11:47:29
[2025-01-26 20:30] LABS: Hematocrit 43.6 % (37-53); Hemoglobin 15.00 g/dL (11.27-16.99); Mean Corpuscular HGB Conc 34.4 g/dL (30-55); Mean Corpuscular Hemoglobin 31.2 pg (27-33); Mean Corpuscular Volume 90.6 fl (82-101); Nucleated Red Blood Cells % 0 %; Platelet Count 193 10^3/cmm (157-399); Red Blood Count 4.81 10^6/uL (3.85-5.65); White Blood Count 17.38 10^3/uL (3.29-11.43)
[2025-01-26 20:52] LABS: Alanine Aminotransferase 21 U/L (0-41); Albumin Level 5.6 g/dL (3.5-5.2); Alkaline Phosphatase 75 U/L (40-130); Anion Gap 24.5 (5-19); Aspartate Amino Transferase 23 U/L (0-40); Blood Urea Nitrogen 11 mg/dL (6-20); Calcium 10.4 mg/dL (8.5-10.5); Carbon Dioxide 23 mmol/L (22-29); Chloride 99 mmol/L (98-107); Creatinine Clr Calc Pharmacy 146.1577; Globulin 2.6 g/dL (1.3-4.6); Glucose 167 mg/dL (65-115); Lipase 16 U/L (13-60); Osmolality Calculated 295 mOsm/kg (285-295); Potassium 5.5 mmol/L (3.5-5.1); Sodium 141 mmol/L (136-145); Total Protein 8.2 g/dL (6.6-8.7)
--- NOTE | 2025-01-26 22:20 | W.ED.ABDPA2 ---
HPI - Abdominal Pain General: Chief Complaint: Nausea/Vomiting/Diarrhea Stated Complaint: N/V/D, Abd Pain Time Seen by Provider: 01/26/25 22:06 Source: patient and family Mode of arrival: ambulatory Limitations: no limitations History of Present Illness: Patient is a 24-year-old male who presents to ED today with a complaint of abdominal pain, nausea, vomiting. Patient states symptoms started yesterday. He states today his abdominal pain was severe prompting his medical evaluation. At time of my evaluation, he tells me his abdominal pain has eased off some and is currently rating it at a 4/10. He does still feel very nauseous. He states this seems to be an ongoing/chronic problem for him over the past several years. He has been seen here in our emergency department several times due to identical symptoms. He has had 2 previous EGDs and a colonoscopy and is scheduled for another colonoscopy through [facility] next week. He takes medications including Zofran and Pantoprazole. 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 He does admit to using marijuana several times a week. MD elicited complaint: abdominal pain Pertinent past history: none Onset (ago): year(s) Pain Consistency: intermittent Location: Diffuse Severity: mild Pain scale (0-10): 4 Radiation: none Migration to: no migration Exacerbating factors: eating Relieving factors: nothing Associated Symptoms: Reports nausea and vomiting; Denies change in bowel habits, chills, diarrhea, dysuria and fever(s) Related Data Home Medications ?Medication ?Instructions ?Recorded ?Confirmed omeprazole magnesium 20 mg 20 mg PO BID 05/11/24 01/01/25 tablet,delayed release (Prilosec OTC) ondansetron HCl 4 mg tablet 4 mg PO Q4H 05/11/24 01/01/25 Previous Rx's ?Medication ?Instructions ?Recorded albuterol sulfate 90 mcg/actuation 2 puff inhalation Q6H PRN 04/14/24 aerosol inhaler shortness of breath or wheezing #8.5 grams ondansetron 4 mg disintegrating 4 mg PO Q6H PRN nausea and 05/11/24 tablet vomiting #14 tabs promethazine-DM 6.25 mg-15 mg/5 mL 7.5 ml PO Q6H PRN cough #118 mL 01/02/25 oral syrup lorazepam 1 mg tablet (Ativan) 1 mg PO BID PRN nausea and 01/27/25 vomiting 3 days #6 tabs olanzapine 5 mg tablet 5 mg PO DAILY 3 days #3 tabs 01/27/25 Allergies Allergy/AdvReac Type Severity Reaction Status Date / Time iodine Allergy ADR-Vomitin Verified 01/01/25 18:01 g Review of Systems Const: Denies: fever(s), chills, body aches, fatigue or malaise Card: Denies: chest pain Resp: Denies: dyspnea GI: Reports: abdominal pain, nausea and vomiting; Denies: diarrhea or change in bowel habits : Denies: flank pain, difficulty urinating, dysuria, urinary frequency, urinary urgency or urinary hesitancy Musc: Denies: neck pain, back pain, extremity pain, extremity swelling, joint pain or joint swelling Skin/Breast: Denies: rash Neuro: Denies: headache(s), numbness in extremities, weakness in extremities, sensory changes or dizziness PFSH ED PFSH: Medical History Abdominal pain Nausea and vomiting in adult Surgical History No pertinent past surgical history Family History Other Hypertension Nausea and vomiting in adult Denies family history of Anesthesia complication Bleeding disorder Social History Smoking and tobacco/nicotine status: current every day tobacco/nicotine user Quit status (tobacco/nicotine): has quit using Year quit tobacco: 2 or 3 months ago Second hand smoke exposure: No Alcohol intake: current Alcohol intake frequency: holidays/special occasions only Substance/Drug Use: never Adopted: No Caregiver/support person: Yes Lives independently: Yes Household members: family Housing: House Marital status: Single Highest education level completed: High School Graduate service: No Current occupational status: employed Current occupational exposures/hazards: No Pets and animals: No Leisure activites: games, hunting and fishing Sexually active: Yes Do you think of yourself as: Straight/Heterosexual Current gender identity: Male Meg/Advent: Hinduism Special meg needs: No Agree to transfusion: No Physical Exam Const: COMMON NORMALS: no acute distress, average body habitus, patient oriented x3, no limitations, healthy appearing, alert and well nourished GENERAL APPEARANCE: cooperative HENMT: COMMON NORMALS: normocephalic and atraumatic HEAD & SCALP: normocephalic and atraumatic Eye: COMMON NORMALS: no scleral icterus Neck/C-Spine: COMMON NORMALS: full ROM, no lymphadenopathy, supple and no meningeal signs Chest: COMMONS NORMALS: normal inspection of the chest Resp: COMMON NORMALS: normal respiratory effort and clear to auscultation bilaterally AUSCULTATION: clear to auscultation bilaterally Cardio: COMMON NORMALS: regular rate and regular rhythm RATE: regular rate RHYTHM: regular rhythm GI: COMMON NORMALS: Normal to inspection, nondistended, normoactive bowel sounds present, Soft to palpation, No hepatosplenomegaly present and no masses INSPECTION: Yes normal to inspection AUSCULTATION: Yes normoactive bowel sounds PALPATION: Yes Soft to palpation, Yes Tenderness to palpation present (GI) (mild diffusely), No Guarding due to palpation present (GI), No Rigid due to palpation and Yes No hepatosplenomegaly present : COMMON NORMALS: Yes no CVA tenderness BLADDER/KIDNEY EXAM: Yes no CVA tenderness Back/Pelvis: COMMON NORMALS: no CVA tenderness and thoracic and lumbar spine normal to inspection Extremity: COMMON NORMALS: normal to inspection Neuro: COMMON NORMALS: patient oriented x3 SENSORIUM/ORIENTATION: Yes alert MENINGEAL SIGNS: Yes no meningeal signs Skin: COMMON NORMALS: no rashes or lesions noted GENERAL SKIN EXAM: no rashes or lesions noted Course Vital Signs: Vital signs: Vital Signs Temperature 97.7 F 01/26/25 19:55 Pulse Rate 79 01/26/25 19:55 Respiratory Rate 22 H 01/26/25 19:55 Blood Pressure 109/75 01/26/25 19:55 Pulse Oximetry 99 01/26/25 19:55 Oxygen Delivery Me thod Room Air 01/26/25 19:55 MDM - Abdominal Pain Medical Decision Making Patient feels significantly better after IV Ativan/Haldol and is now resting comfortably. He was able to eat/ drink here. Patient's vital signs are stable. Blood work showing a white count of 17.38 most likely from his intractable nausea and vomiting all day. Chemistry overall is nonactionable. Elevated gap most likely secondary to dehydration. He was given IV fluids here. UA was unable to be obtained. On repeat re-examination abdomen is nontender/nonsurgical. I do not feel CT imaging is warranted. This has been an ongoing/longstanding issue with patient since 2019. I do feel like his habitual/chronic marijuana use could be contributing. He has already underwent 2 EGD studies as well as a previous colonoscopy and is scheduled for another colonoscopy soon in [place]. Recommend he continue to follow-up with his GI team as well as primary care. I do not any suspicion for life-threatening/emergent etiology at this time and patient will be allowed discharge from the emergency department with return precautions. Differential Diagnosis Likely abdominal pain, constipation, diverticulitis, pancreatitis and small bowel obstruction Medical Records I reviewed the patient's medical records. Lab Data I reviewed the patient's lab results. 01/26/25 20:25 01/26/25 20:25 Labs/Radiology: Laboratory Results WBC 17.38 10^3/uL (3.29-11.43) H 01/26/25 20: RBC 4.81 10^6/uL (3.85-5.65) 01/26/25 20: Hgb 15.00 g/dL (11.27-16.99) 01/26/25 20: Hct 43.6 % (37-53) 01/26/25: MCV 90.6 fl (82-101) 01/26/25 20: MCH 31.2 pg (27-33) 01/26/25 20: MCHC 34.4 g/dL (30-55) 01/26/25: RDW 12.0 % (12.1-15.1) L 01/26/25 20: Plt Count 193 10^3/cmm (157-399) 01/26/25 20: MPV 11.8 fL (7.4-10.4) H 01/26/25 20: Neut % (Auto) 91.9 % 01/26/25 20:25 Lymph % (Auto) 3.5 % 01/26/25 20:25 [place] % (Auto) 3.8 % 01/26/25: Eos % (Auto) 0.1 % 01/26/25 20:25 Baso % (Auto) 0.3 % 01/26/25 20:25 Neut # (Auto) 15.99 10^3/uL (1.8-7.7) H 01/26/25 20:25 Lymph # (Auto) 0.6 10^3/uL (0.8-4.8) L 01/26/25 20:25 [place] # (Auto) 0.7 10^3/uL (0.2-0.9) 01/26/25 20:25 Eos # (Auto) 0.0 10^3/uL (0.0-0.8) 01/26/25 20:25 Baso # (Auto) 0.1 10^3/uL (0.0-0.1) 01/26/25 20:25 Nucleated RBC % (auto) 0 % 01/26/25 20: Nucleated RBCs # 0.0 /100WBC 01/26/25 20:25 Sodium 141 mmol/L (136-145) 01/26/25 20:25 Potassium 5.5 mmol/L (3.5-5.1) H 01/26/25 20:25 Chloride 99 mmol/L (98-107) 01/26/25 20:25 Carbon Dioxide 23 mmol/L (22-29) 01/26/25 20:25 Anion Gap 24.5 (5-19) H 01/26/25 20:25 BUN 11 mg/dL (6-20) 01/26/25 20:25 Creatinine 0.7 mg/dL (0.7-1.2) 01/26/25 20:25 GFR Calculation 138.6 mL/min (90-130) H 01/26/25 20:25 Glucose 167 mg/dL (65-115) H 01/26/25 20:25 Calculated Osmolality 295 mOsm/kg (285-295) 01/26/25 20:25 Calcium 10.4 mg/dL (8.5-10.5) 01/26/25 20:25 Total Bilirubin 1.3 mg/dL (0.15-1.2) H 01/26/25 20:25 AST 23 U/L (0-40) 01/26/25 20:25 ALT 21 U/L (0-41) 01/26/25 20:25 Alkaline Phosphatase 75 U/L (40-130) 01/26/25 20:25 C-Reactive Protein 3.0 mg/L (0.0-4.9) 01/26/25 20:25 Total Protein 8.2 g/dL (6.6-8.7) 01/26/25 20:25 Albumin 5.6 g/dL (3.5-5.2) H 01/26/25 20:25 Globulin 2.6 g/dL (1.3-4.6) 01/26/25 20:25 Lipase 16 U/L (13-60) 01/26/25 20:25 No radiology studies performed this visit Discharge Plan Discharge Patient Disposition: Home Clinical Impression: Nausea and vomiting Qualifiers: Vomiting type: unspecified Qualified Code(s): R11.2 - Nausea with vomiting, unspecified Condition: Stable Prescriptions: New olanzapine 5 mg tablet 5 mg PO DAILY 3 Days Qty: 3 0RF lorazepam [Ativan] 1 mg tablet 1 mg PO BID PRN (Reason: nausea and vomiting) 3 Days Qty: 6 0RF No Action albuterol sulfate 90 mcg/actuation HFA aerosol inhaler 2 puff inhalation Q6H PRN (Reason: shortness of breath or wheezing) Qty: 8.5 0RF promethazine-DM 6.25-15 mg/5 mL syrup 7.5 ml PO Q6H PRN (Reason: cough) Qty: 118 0RF ondansetron HCl 4 mg tablet 4 mg PO Q4H omeprazole magnesium [Prilosec OTC] 20 mg Tablet,Delayed Release (Dr/Ec) 20 mg PO BID ondansetron 4 mg tablet,disintegrating 4 mg PO Q6H PRN (Reason: nausea and vomiting) Qty: 14 0RF Discharge Orders: Discharge ED (Routine); Ordered 01/27/25 Ordered By: Kitty Lyon Referrals: Robbi Mckay MD [Primary Care Provider, Family Practice] Patient Instructions: Acute Nausea and Vomiting (DC), Cyclic Vomiting Syndrome (ED), Patient Portal & Starla Instructions Activity Restrictions/Additional Instructions: As we discussed, he can continue to follow-up with his GI specialist in [place] as well as primary care for further evaluation. I highly recommend he completely abstain from marijuana use indefinitely. He needs to return to the emergency department for worsening or severe or uncontrollable abdominal pain, intractable nausea or vomiting, fevers, generally feeling worse or unwell, or any other concerns he may have. Print Language: Venezuelan Coding Level of Care Code ED Air Chipper for Casey Del Toro
[2025-01-26] MEDS: metoclopramide 5 mg/mL SDV 2 mL 10 MG IVP (23:27)
[2025-01-27] MEDS: haloperidol inj 5 mg/mL INJ 1 mL 2.5 MG IVP (00:02)
[2025-01-27] MEDS: LORazepam 1 MG/0.5 ML injection IVP (00:02)
== END 2025-01-27 01:05 | disposition home or self-care (01) ==
PROVIDERS: Emergency Medicine; Emergency Provider Physician Assistant; PCP Family Medicine
DX: R11.2 Nausea with vomiting, unspecified (principal); Z72.0 Tobacco use
CPT/HCPCS: 36415; 80053; 83690; 85025; 86140; 96361; 96374; 96375; 99284; J1630; J2060; J2765; J7030